=== PATIENT | female | born 1960 | race Caucasian/White ===

== ENCOUNTER 2020-06-16 07:41 | Outpatient (CLI) | payer BC, SELFPAY ==
[2020-06-16 07:59] LABS: Hemoglobin 13.6 g/dL (12.0-15.0); Mean Corpuscular HGB Conc 32.4 g/dl (32-36); Mean Corpuscular Hemoglobin 27.4 pg (26-34); Mean Corpuscular Volume 84.5 fl (80-100); Mean Platelet Volume 12.5 fl (7.4-10.4); Platelet Count Result 168 k/mm3 (150-375); Red Blood Count 4.97 M/mm3 (4.2-5.4); Red Cell Distribution Width 13.8 % (11.5-14.5); White Blood Count 6.2 K/mm3 (4.5-10.0)
[2020-06-16 08:13] LABS: Hemoglobin A1C 6.4 % (<5.7)
[2020-06-16 08:14] LABS: Alanine Aminotransferase 23 U/L (4-35); Albumin Level 4.2 g/dL (3.5-5.1); Alkaline Phosphatase 76 U/L (38-126); Anion Gap 11.8 mmol/L (7-16); Aspartate Amino Transferase 24 U/L (14-36); Bilirubin,Total 0.5 mg/dL (0.2-1.3); Blood Urea Nitrogen 14 mg/dL (7-17); Calcium 9.6 mg/dL (8.4-10.2); Carbon Dioxide 25 mmol/L (22-30); Chloride 104 mmol/L (98-107); Cholesterol 147 mg/dL (0-200); Estimated Glomerular Filt Rate > 60; Glucose 150 mg/dL (65-105); HDL Direct 54 mg/dL; Potassium 3.8 mmol/L (3.4-5.0); Sodium 137 mmol/L (137-145); Triglycerides 78 mg/dL (<150)
[2020-06-16 08:25] LABS: LDL Cholesterol Direct 72 mg/dL
== END 2020-06-16 07:42 | disposition home or self-care (01) ==
PROVIDERS: PCP Internal Medicine; Visit Provider Physician Assistant
DX: R76.8 Other specified abnormal immunological findings in serum (principal); I10 Essential (primary) hypertension; R73.9 Hyperglycemia, unspecified; R53.83 Other fatigue
CPT/HCPCS: 36415; 80053; 80061; 82607; 82746; 83036; 84443; 85027; 86038

== ENCOUNTER → 2021-07-12 13:42 | Outpatient (CLI) | payer BC, SELFPAY ==
--- NOTE | ~2021-07-12 | US_ITS ---
EXAMINATION: US thyroid DATE: 07/12/2021 13:58 INDICATION: Hyperparathyroidism, unspecified. TECHNIQUE: Multiple ultrasound images of the thyroid were obtained. COMPARISON: None. FINDINGS: The right thyroid lobe measures 5.8 x 2.3 x 2.2 cm. The left thyroid lobe measures 5.5 x 2.4 x 2.9 c m. In the left thyroid lobe, there is a 2.1 cm mixed cystic and solid, hypoechoic, dgwmj-xczk-mqea n odule with ill-defined margin without echogenic foci (TI-RADS TR3). In the left thyroid lobe, there i s a 2.4 cm predominantly solid, hypoechoic, vsujf-tgqd-pvlg nodule with ill-defined margin without ec hogenic foci (TR4). In the right thyroid lobe, there is a 1.6 cm solid, isoechoic, sxnmx-srcc-hets no dule with ill-defined margin without echogenic foci (TR3). IMPRESSION: 1. Multinodular goiter. Ultrasound-guided fine-needle aspiration of the 2.4 cm left thyroid nodule is recommended. Reviewed, dictated and finalized at location B.
== END ==
PROVIDERS: PCP Physician Assistant; Visit Provider Physician Assistant
DX: E21.3 Hyperparathyroidism, unspecified (principal); E04.2 Nontoxic multinodular goiter
CPT/HCPCS: 76536

== ENCOUNTER → 2021-07-16 02:54 | Outpatient (CLI) | payer BC, SELFPAY ==
[2021-07-16 19:41] LABS: SARS-CoV-2 RNA PCR Negative
== END ==
PROVIDERS: PCP Physician Assistant; Visit Provider Internal Medicine Gastroenterology
DX: Z01.812 Encounter for preprocedural laboratory examination (principal); Z20.822 Contact with and (suspected) exposure to COVID-19
CPT/HCPCS: C9803; U0003; U0005

== ENCOUNTER 2021-07-19 01:04 | Day surgery (SDC) | payer BC, SELFPAY ==
[2021-07-10 12:07] VITALS: BMI 64.0
[2021-07-19 07:58] VITALS: BP 144/95; PULSE 59; RESP 18; TEMP 36; O2SAT 96; BMI 64.3
[2021-07-19 08:15] LABS: Glucose Point of Care 156 mg/dl (65-105)
[2021-07-19] MEDS: LACTATED RINGERS 1,000 ML 150 ML IV CONT (08:23)
--- NOTE | 2021-07-19 08:30 | WPDANESEPPF ---
Anes - Initial Pre Proc Eval Procedure: Operation Date: 07/19/21 09:00 Proposed Procedures p Screening Colonoscopy - Matty Colin MD Date/Time: 07/19/21 08:30 Surgeon: Matty Colin MD Pre Op Diagnosis: family hx of colon ca Patient Data Age: 61 Gender: F Height: 1.73 m Weight: 192.1 kg Last Vital Signs Temp 96.8 F L 07/19/21 07:58 Pulse 59 L 07/19/21 07:58 Resp 18 07/19/21 07:58 BP 144/95 H 07/19/21 07:58 Pulse Ox 96 07/19/21 07:58 Allergies Allergy/AdvReac Type Severity Reaction Status Date / Time latex Allergy Unknown Unknown Verified 07/19/21 08:07 Home Medications Medication Instructions Recorded Confirmed Type rivaroxaban 20 mg tablet See Rx Instructions .ROUTE 02/21/21 07/19/21 Rx .COMPLEX #30 tablet metoprolol succinate 50 mg See Rx Instructions .ROUTE 04/22/21 07/19/21 Rx tablet,extended release 24 hr .COMPLEX #30 tablet triamterene 37.5 1 cap PO DAILY #90 cap 06/14/21 07/19/21 Rx mg-hydrochlorothiazide 25 mg capsule metformin 500 mg tablet 500 mg PO DAILY #90 tablet 06/21/21 07/19/21 Rx diltiazem HCl [Cardizem] See Rx Instructions .ROUTE .COMPLEX 07/10/21 07/19/21 History Laboratory Tests 07/19/21 08:13 POC Capillary Glucose 156 mg/dl H mg/dl (65-105) Patient hx anesthesia problems: none Family hx anesthesia problems: none [facility] Past Medical History Medical History (Updated 07/05/21 @ 13:46 by Scotty Rose PA-C) Atrial fibrillation with controlled ventricular rate Chronic atrial fibrillation SPRAGUE (dyspnea on exertion) Essential hypertension with goal blood pressure less than 140/90 Hypersomnia Irregular heartbeat Obstructive sleep apnea Palpitations with regular cardiac rhythm Surgical History Surgical History H/O: hysterectomy Hx of cholecystectomy Family History Family History Father Diabetes mellitus Carcinoma of colon Patient's father is Mother Hypertension Patient's mother is in good health Sibling Cerebrovascular accident Family history of malignant neoplasm of thyroid Social History Social History Smoking status: Never smoker Second hand tobacco smoke exposure: No Alcohol intake: former Substance use: never Substance use type: does not use Living arrangements: with family Gender identity (if verbalized by the patient): Female Anes - Eval Final PreProcedure Day of Procedure 07/19/21 08:30 Patient weight: super morbidly obese (super super) Heart: irregular rhythm Lungs: clear to auscultation Airway: Mallampati scale class III Neurological: alert and oriented Last oral intake: >/= 8 hours ASA classification: IV Emergent: no Anesthetic plan: proceed Anesthesia type and monitoring: general GIVS and standard monitoring Informed Consent: The patient's anesthetic plan and its attendant risks and benefits were discussed with the patient/family/POA. Questions were solicited and answers provided to the satisfaction of the patient/family/POA.
--- NOTE | 2021-07-19 08:34 | WPDGICN ---
Assessment and Plan Assessment and plan (1) Family history of colon cancer in father: Code(s): Z80.0 - Family history of malignant neoplasm of digestive organs Status: Acute Assessment and Plan: Patient's father had colon cancer. For this reason would advise screening colonoscopy at 5 year intervals. This report follows later today. Further recommendations may be given after endoscopy. (2) GERD (gastroesophageal reflux disease): Code(s): K21.9 - Gastro-esophageal reflux disease without esophagitis Status: Acute Assessment and Plan: Patient complains of chronic heartburn. She states she takes PPI therapy on a regular basis. This appears to control symptoms because of her the chronic GE reflux she has never had an endoscopy plan is for EGD to assess her upper GI tract today. (3) Morbid obesity with BMI of 60.0-69.9, adult: Code(s): E66.01 - Morbid (severe) obesity due to excess calories; Z68.44 - Body mass index [BMI] 60.0-69.9, adult Status: Acute Assessment and Plan: Patient is obese. Weight loss is strongly encouraged. (4) Atrial fibrillation with controlled ventricular rate: Code(s): I48.91 - Unspecified atrial fibrillation Status: Acute Assessment and Plan: Patient with atrial fibrillation for which she is on anticoagulation. Plan to hold anticoagulants briefly for endoscopy. GI Consult Note Consult date/time: 07/19/21 08:34 HPI: Allyn Ramirez is a 61 year old female Presents for GI endoscopy. Patient has family history of colon cancer in her father. Most recent colonoscopy in [address] douglas. Patient denies any bleeding. Her bowel habits have been normal. She denies any weight loss. Patient does have a history of heartburn for many years. She currently takes omeprazole for control of symptoms. She denies any dysphagia weight loss. Because of chronic heartburn she desires investigation. Review of Systems Review of Systems: All systems reviewed & are unremarkable except as noted in HPI and below [facility] Past Medical History Medical History (Updated 07/19/21 @ 08:36 by Matty Colin MD) Atrial fibrillation with controlled ventricular rate Chronic atrial fibrillation SPRAGUE (dyspnea on exertion) Essential hypertension with goal blood pressure less than 140/90 Hypersomnia Irregular heartbeat Obstructive sleep apnea Palpitations with regular cardiac rhythm Surgical History Surgical History H/O: hysterectomy Hx of cholecystectomy Family History Family History Father Diabetes mellitus Carcinoma of colon Patient's father is Mother Hypertension Patient's mother is in good health Sibling Cerebrovascular accident Family history of malignant neoplasm of thyroid Social History Social History Smoking status: Never smoker Second hand tobacco smoke exposure: No Alcohol intake: former Substance use: never Substance use type: does not use Living arrangements: with family Gender identity (if verbalized by the patient): Female Meds Home Medications and Allergies Home Medications Medication Instructions Recorded Confirmed Type rivaroxaban 20 mg tablet See Rx Instructions .ROUTE 02/21/21 07/19/21 Rx .COMPLEX #30 tablet metoprolol succinate 50 mg See Rx Instructions .ROUTE 04/22/21 07/19/21 Rx tablet,extended release 24 hr .COMPLEX #30 tablet triamterene 37.5 1 cap PO DAILY #90 cap 06/14/21 07/19/21 Rx mg-hydrochlorothiazide 25 mg capsule metformin 500 mg tablet 500 mg PO DAILY #90 tablet 06/21/21 07/19/21 Rx diltiazem HCl [Cardizem] See Rx Instructions .ROUTE .COMPLEX 07/10/21 07/19/21 History Allergies Allergy/AdvReac Type Severity Reaction Status Date / Time latex Allergy Unknown U
--- NOTE | 2021-07-19 09:15 | SUR.OPER ---
EGD START 850, END 852 COLONOSCOPY START 905, END 914
[2021-07-19 09:17] VITALS: BP 144/95; PULSE 145; RESP 24; O2SAT 96
[2021-07-19 09:27] VITALS: BP 107/62; PULSE 120; RESP 24; O2SAT 96
[2021-07-19 09:37] VITALS: BP 126/72; PULSE 97; RESP 19; O2SAT 100
[2021-07-19 09:47] VITALS: BP 136/90; PULSE 95; RESP 17; O2SAT 100
== END 2021-07-19 09:51 | disposition home or self-care (01) ==
PROVIDERS: PCP Physician Assistant; Visit Provider Internal Medicine Gastroenterology
PROC: 0DJD8ZZ Inspection of Lower Intestinal Tract, Via Natural or Artificial Opening Endoscopic (ICD-10-PCS; CPT 45378; principal; 2021-07-19 09:00)
DX: Z12.11 Encounter for screening for malignant neoplasm of colon (principal); Z80.0 Family history of malignant neoplasm of digestive organs; K21.9 Gastro-esophageal reflux disease without esophagitis; K57.30 Diverticulosis of large intestine without perforation or abscess without bleeding; K64.8 Other hemorrhoids; I48.20 Chronic atrial fibrillation, unspecified; I10 Essential (primary) hypertension; E66.01 Morbid (severe) obesity due to excess calories; G47.33 Obstructive sleep apnea (adult) (pediatric); G47.10 Hypersomnia, unspecified; Z79.01 Long term (current) use of anticoagulants; Z90.710 Acquired absence of both cervix and uterus; Z90.49 Acquired absence of other specified parts of digestive tract; Z79.899 Other long term (current) drug therapy
CPT/HCPCS: 45378; 43235; 82948; J2704; J7120

== ENCOUNTER → 2021-09-03 02:22 | Outpatient (CLI) | payer BC, SELFPAY ==
[2021-09-03 16:22] LABS: SARS-CoV-2 RNA PCR Negative
== END ==
PROVIDERS: PCP Physician Assistant; Visit Provider Otolaryngology
DX: Z01.812 Encounter for preprocedural laboratory examination (principal); Z20.822 Contact with and (suspected) exposure to COVID-19
CPT/HCPCS: C9803; U0003; U0005

== ENCOUNTER 2021-09-03 08:48 | Outpatient (CLI) | payer BC, SELFPAY ==
--- NOTE | 2021-09-03 09:30 | ECG_ITS ---
Measurements Intervals [place] Rate: 102 P: NH: 0 QRS: 3 QRSD: 101 T: 12 QT: 352 QTc: 460 Interpretive Statements ATRIAL FIBRILLATION WITH RAPID VENTRICULAR RESPONSE LOW QRS VOLTAGE IN PRECORDIAL LEADS BORDERLINE T WAVE ABNORMALITY- INFERIOR LEADS BASELINE WANDER- I, II, AVR ABNORMAL ECG Electronically Signed On 09-03-2021 9:51:19 CDT by Serge Ho D.O.
[2021-09-03 10:43] LABS: Anion Gap 8 mmol/L (8-16); Blood Urea Nitrogen 11 mg/dL (7-17); Calcium 11.1 mg/dL (8.4-10.2); Carbon Dioxide 30 mmol/L (22-30); Chloride 101 mmol/L (98-107); Estimated Glomerular Filt Rate > 60; Glucose 157 mg/dL (65-110); Sodium 139 mmol/L (137-145)
== END 2021-09-03 08:49 | disposition home or self-care (01) ==
LOC: ANHSURGERY 08:52
PROVIDERS: Anesthesiology; PCP Physician Assistant; Visit Provider Otolaryngology
DX: Z01.818 Encounter for other preprocedural examination (principal); I10 Essential (primary) hypertension; E11.9 Type 2 diabetes mellitus without complications; I48.91 Unspecified atrial fibrillation
CPT/HCPCS: 36415; 80048; 93005

== ENCOUNTER 2021-09-06 00:17 | Day surgery (SDC) | payer BC, SELFPAY ==
[2021-08-28 14:58] VITALS: BMI 63.6
--- NOTE | 2021-09-05 08:04 | PM.IMHP ---
H&P: HPI History of Present Illness Date/Time: 09/05/21 08:04 Chief Complaint: thyroid goiter, left thyroid nodules, choking, coughing, dysphagia Narrative: patient presents for planned surgical procedures. No change in symptoms no change in Medical history. Review of Systems Constitutional: Constitutional: Denies fatigue, Denies fever(s) and Denies lethargy Eyes: Eyes: Denies blurry vision and Denies change in vision ENT: Reports as per HPI Cardiovascular: Cardiovascular: Denies chest pain Respiratory: Respiratory: Denies cough Endocrine: Endocrine: Denies fatigue Hematologic/Lymphatic: Hematologic/Lymphatic: Denies easy bleeding, Denies easy bruising and Denies lymphadenopathy Allergic/Immunologic: Allergic/Immunologic: Denies seasonal rhinorrhea [facility] Past Medical History Medical History (Updated 07/24/21 @ 09:59 by Tejas Brown MD) Atrial fibrillation with controlled ventricular rate Chronic atrial fibrillation SPRAGUE (dyspnea on exertion) Essential hypertension with goal blood pressure less than 140/90 Hypersomnia Irregular heartbeat Obstructive sleep apnea Palpitations with regular cardiac rhythm Surgical History Surgical History H/O: hysterectomy Hx of cholecystectomy Family History Family History Father Diabetes mellitus Carcinoma of colon Patient's father is Mother Hypertension Patient's mother is in good health Sibling Cerebrovascular accident Family history of malignant neoplasm of thyroid Social History Social History Smoking status: Never smoker Second hand tobacco smoke exposure: No Alcohol intake: former Substance use: never Substance use type: does not use Gender identity (if verbalized by the patient): Female Meds Home Medications and Allergies Home Medications Medication Instructions Recorded Confirmed Type triamterene 37.5 1 cap PO DAILY #90 cap 06/14/21 08/28/21 Rx mg-hydrochlorothiazide 25 mg capsule metformin 500 mg tablet 500 mg PO DAILY #90 tablet 06/21/21 08/28/21 Rx diltiazem HCl [Cardizem] 30 mg PO BID 07/10/21 08/28/21 History metoprolol succinate 50 mg PO DAILY 08/28/21 08/28/21 History rivaroxaban [Xarelto] 20 mg PO DAILY 08/28/21 08/28/21 History Allergies Allergy/AdvReac Type Severity Reaction Status Date / Time latex Allergy Unknown BLISTERS, Verified 08/28/21 14:50 ITCHING Exam Const: General: cooperative, healthy appearing, comfortable, well developed and alert HENMT: Head: normal to inspection, normocephalic and atraumatic Ears: hearing grossly normal bilaterally, external ears normal, TM's normal bilaterally and EAC's normal General nose exam: Normal external nose present, Normal nares present, No nasal polyps present, Normal nasal mucous membranes and turbinates present and Normal septum present Face and sinus: normal facial exam Mouth: Yes Normal oral and palatal mucosa present, Yes lip normal, Yes tongue normal, Yes oropharynx normal and Yes moist mucous membranes Teeth and gingiva: dentition normal and gingiva normal Throat: posterior oropharynx normal, tonsils normal and uvula midline Eyes: General: appearance normal, both eyes and all related structures Periorbital: periorbital findings normal Eyelids: eyelids normal Conjunctivae: conjunctivae normal Sclera: sclerae normal Neck: Neck: normal visual inspection, full ROM and no lymphadenopathy Thyroid: asymmetrical and other ( bilateral nodules left greater than right) Lymphatic: no lymphadenopathy noted Resp: Effort & Inspection: normal respiratory effort and able to speak in complete sentences Cardio: Jugular venous distension: no JVD Neuro: Cranial nerves: Yes CN's II-XII intact bilaterally Assessment and Plan Assessment and plan (1) Goiter: Co
[2021-09-06] VITALS (7 sets, daily range): BP systolic 116–157; BP diastolic 61–102; PULSE 78–124; RESP 16–24; TEMP 36.6–36.8; O2SAT 92–97; BMI 64.3
--- NOTE | 2021-09-06 07:10 | WPDHPUPDATE1 ---
History and Physical Update Update Date/Time: 09/06/21 07:10 History and Physical has been reviewed, including an updated exam of the patient. There are NO changes in the patient's condition. Risks, benefits, and alternatives have been discussed and questions answered. Patient agrees to proceed with procedure.
[2021-09-06 10:24] LABS: Glucose Point of Care 139 mg/dl (65-105)
[2021-09-06] MEDS: ACETAMINOPHEN 500 MG TABLET 1000 MG PO (10:39)
[2021-09-06] MEDS: LACTATED RINGERS 1,000 ML 30 ML IV CONT ×2 (10:39→15:46)
--- NOTE | 2021-09-06 10:58 | WPDANESEPPF ---
Anes - Initial Pre Proc Eval Procedure: Operation Date: 09/06/21 11:15 Proposed Procedures p Left Thyroidectomy with Laryngeal Nerve Monitoring - Tejas Brown MD Date/Time: 09/06/21 10:58 Surgeon: Tejas Brown MD Pre Op Diagnosis: left thyroid nodule Patient Data Age: 61 Gender: F Height: 1.73 m Weight: 192.1 kg Last Vital Signs Temp 36.8 C 09/06/21 10:34 Pulse 78 09/06/21 10:34 Resp 16 09/06/21 10:34 BP 157/86 H 09/06/21 10:34 Pulse Ox 96 09/06/21 10:34 Allergies Allergy/AdvReac Type Severity Reaction Status Date / Time latex Allergy Unknown BLISTERS, Verified 08/28/21 14:50 ITCHING Home Medications Medication Instructions Recorded Confirmed Type triamterene 37.5 1 cap PO DAILY #90 cap 06/14/21 08/28/21 Rx mg-hydrochlorothiazide 25 mg capsule metformin 500 mg tablet 500 mg PO DAILY #90 tablet 06/21/21 08/28/21 Rx diltiazem HCl [Cardizem] 30 mg PO BID 07/10/21 08/28/21 History metoprolol succinate 50 mg PO DAILY 08/28/21 08/28/21 History rivaroxaban [Xarelto] 20 mg PO DAILY 08/28/21 08/28/21 History Laboratory Tests 09/06/21 10:21 POC Capillary Glucose 139 mg/dl H mg/dl (65-105) Patient hx anesthesia problems: none Family hx anesthesia problems: none Results Review: All pre-operative results and documents have been reviewed as part of the pre-operative evaluation. [facility] Past Medical History Medical History Atrial fibrillation with controlled ventricular rate Chronic atrial fibrillation SPRAGUE (dyspnea on exertion) Essential hypertension with goal blood pressure less than 140/90 Hypersomnia Irregular heartbeat Obstructive sleep apnea Palpitations with regular cardiac rhythm Surgical History Surgical History H/O: hysterectomy Hx of cholecystectomy Family History Family History Father Diabetes mellitus Carcinoma of colon Patient's father is Mother Hypertension Patient's mother is in good health Sibling Cerebrovascular accident Family history of malignant neoplasm of thyroid Social History Social History Smoking status: Never smoker Second hand tobacco smoke exposure: No Alcohol intake: former Substance use: never Substance use type: does not use Living arrangements: with family Gender identity (if verbalized by the patient): Female Anes - Eval Final PreProcedure Day of Procedure 09/06/21 10:58 Patient weight: super morbidly obese Heart: irregular rhythm Lungs: clear to auscultation Airway: Mallampati scale class III Neurological: alert and oriented Last oral intake: >/= 8 hours ASA classification: III Emergent: no Anesthetic plan: proceed Anesthesia type and monitoring: general ETT and standard monitoring Results Review: All pre-operative results and documents have been reviewed as part of the pre-operative evaluation. Informed Consent: The patient's anesthetic plan and its attendant risks and benefits were discussed with the patient/family/POA. Questions were solicited and answers provided to the satisfaction of the patient/family/POA.
[2021-09-06] MEDS: ceFAZolin 3 GM/D5W 100 ML 100 ML IVPB (11:29)
[2021-09-06] MEDS: LIDO 1%/EPINEPHRINE 1:100,000 50 ML VIAL 10 ML INFILTRATE (12:26)
--- NOTE | 2021-09-06 12:40 | SUR.PREOP ---
DR CHRISTOPHER AWARE PT HAS STOPPED XARENTO FOR 5 DAYS. STOPPED TAKING ON XARELTO ON VVBOIH51/10/21.
[2021-09-06] MEDS: ceFAZolin SODIUM 1 GM VIAL 2 GM IV PUSH (15:27)
[2021-09-06 15:54] LABS: Glucose Point of Care 171 mg/dl (65-105)
--- NOTE | 2021-09-06 16:18 | P.OP_ITS ---
Procedure Note - Detailed Date of Procedure 09/06/21 Pre-op Diagnosis left thyroid nodule, thyroid goiter, substernal thyroid, dysphagia, choking, compressive symptoms Post-op Diagnosis same Procedure Performed 1. Left thyroid lobectomy, substernal, with recurrent laryngeal nerve monitoring 2. Reimplantation of left parathyroid superior in the left sternocleidomastoid. Surgeon Tejas Brown MD Furnace Installer Helper Multiple Anesthesia general Indications See above Findings Large left thyroid lobe with substernal the patient had nerve which was split by calcified tubercle of Zuckerkandl and Luis's ligament, ran through Luis's ligament extensive dissection required complex compared to a standard thyroid lobectomy Description of Procedure The patient was correctly identified and consent was verified in the preoperative holding area. The patient was then brought to the operating room and a time-out performed. Anesthesia was induced and endotracheal tube was secured the patient's airway, nerve monitoring. Patient was prepped and draped for the aforementioned procedure a shoulder roll nerve monitoring was set up and confirmed. Surgical site marked injected with 2 cc of 1% lidocaine with 1 100,000 parts epinephrine approximately 2 cm above the sternal notch in a relaxed skin tension line.. Dissection occurred down to the platysma with 15 blade and Bovie electrocautery. Platysma was incised. The superior and inferior subplatysmal flaps were elevated. Midline raphe was identified and dissected down using blunt dissection as well as Bovie electrocautery the thyroid isthmus was identified. Dura hooks were placed. Dissection lateral to the thyroid inferior and superior occurred with ligature tenotomy scissors and blunt dissection as well as peanuts. The superior vessels were all ligated using ligature. Superior parathyroid was inadvertently removed chopped into small pieces and placed in the left sternocleidomastoid. Dissection was fairly straight forward until the left lateral aspect was noted to have a calcified nodule. This nodule occurred to happen be wrapped around the nerve. Dissection of the nerve was complex in nature taking approximately 1-2 hours. The nerve was split by the ligament of Cruz and nodule. With thorough careful dissection the nerve was dissected free from the lateral aspect lateral posterior aspect of the thyroid. The nerve stimulated at the end of the procedure all the way down 2.5. Given the large size thyroid was split in 2 and sent in a superior and inferior pathologic specimen. Ligature was then utilized to remove the thyroid. Hemostasis was adequate and Anesthesia Valsalva. The wound was copiously irrigated. Of note the inferior thyroid the inferior parathyroid on the left was also identified and appeared vascularized this was left in the operative bed. Given the large size of the defect in the inferior portion of the thyroid also extended substernally and had to be scooped out a drain was placed and sutured to the skin using 3-0 nylon suture. The deep layers were closed in the superior portion using 3-0 interrupted Vicryl sutures. The platysma was closed using 3-0 interrupted Vicryl sutures. The deep dermal layer was closed using 3- 0 interrupted Vicryl sutures. The skin approximated perfectly. This was glued closed. The drain held suction. Patient was cleaned. Care the patient was turned over to Anesthesiology. Total blood loss 25 cc. I performed all dictated portions of the procedure. There were no immediate complications. Estimated Blood Loss 25 Drains Yes Packing No Pathology yes Complications No immediate complications Condition stable Disposition PAC
== END 2021-09-06 17:55 | disposition home or self-care (01) ==
PROVIDERS: PCP Physician Assistant; Visit Provider Otolaryngology
PROC: (CPT 60271; principal; 2021-09-06 11:15)
DX: C73 Malignant neoplasm of thyroid gland (principal); E04.2 Nontoxic multinodular goiter; R13.10 Dysphagia, unspecified; R09.89 Other specified symptoms and signs involving the circulatory and respiratory systems; Z79.84 Long term (current) use of oral hypoglycemic drugs; T17.308A Unspecified foreign body in larynx causing other injury, initial encounter; I48.91 Unspecified atrial fibrillation; I48.20 Chronic atrial fibrillation, unspecified; R06.09 Other forms of dyspnea; I10 Essential (primary) hypertension; G47.10 Hypersomnia, unspecified; R00.9 Unspecified abnormalities of heart beat; G47.33 Obstructive sleep apnea (adult) (pediatric); Z90.49 Acquired absence of other specified parts of digestive tract; E66.01 Morbid (severe) obesity due to excess calories; Z68.44 Body mass index [BMI] 60.0-69.9, adult
CPT/HCPCS: 60271; 60512; 36415; 80048; 82948; 88307; 93005; A9270; C9803; J0330; J0690; J1100; J2250; J2405; J2704; J3010; J7120; U0003; U0005

== ENCOUNTER → 2021-10-29 03:14 | Outpatient (CLI) | payer BC, SELFPAY ==
[2021-10-29 20:28] LABS: SARS-CoV-2 RNA PCR Negative
== END ==
PROVIDERS: PCP Physician Assistant; Visit Provider Otolaryngology
DX: Z01.812 Encounter for preprocedural laboratory examination (principal); Z20.822 Contact with and (suspected) exposure to COVID-19
CPT/HCPCS: C9803; U0003; U0005

== ENCOUNTER 2021-11-01 00:32 | Day surgery (SDC) | payer BC, SELFPAY ==
[2021-10-24 09:56] VITALS: BMI 61.0
--- NOTE | 2021-10-24 10:06 | PC.NURSE ---
Report to the Outpatient Waiting Room, entrance under the green pavilion located off [facility], at time 0700 on date 11/01/21. OR Time: 0900. - You and your visitor will be asked a series of questions to screen for COVID 19 for your protection. - A mask is required within the hospital. - Only one visitor is allowed at this time. Patient visitors will be guided where to wait when not with patient. Preoperative COVID Testing Requirements: No COVID Test needed if: (proof is required; if not received patient will have Rapid Test prior to entry) - Patient has received COVID Vaccine at least 14 days prior to procedure date or - Patient has positive COVID test result within last 90 days of surgery date. COVID Test needed if above criteria is not met If not COVID vaccinated a COVID test must be conducted within 72 hours of surgery and patient is asked to isolate self from time of testing until procedure. You will go to the [facility] for your COVID testing. The [facility] is located at the corner of [address] [facility]. COVID TEST 10/29 AT 0835 You will only be called if COVID results are positive and your surgeon may reschedule your elective surgery date. Patients may have clear liquids (water, carbonated beverages, clear teas, apple juice) until 3 hours prior to surgery with a maximum of 20 ounces. - No food from midnight until time of surgery - Infants may have breast milk until 4 hours before surgery, formula 6 hours prior to surgery. - Children will be allowed to drink immediately following surgery. If applicable, please bring a bottle or sippy cup to assist with drinking. Juice, water, soda, and popsicles are readily available. For infants on formula, please bring formula the day of surgery. Pacifiers are allowed. Take the following medications with a SIP of water the morning of surgery: DILTIAZEM, LEVOTHYROXINE, METOPROLOL Medications to discontinue per physician: VITAMINS/SUPPLEMENTS Date to take last dose: 10/28/[address] CHRISTOPHER Please no make-up, nail cypriot, hairspray, perfume, deodorant, or body powder the day of surgery. No jewelry (including any body piercings) or valuables the day of surgery, leave them at home. Please take a shower or bath the night before, or the morning of, surgery with an antibacterial soap. Wear comfortable, loose fitting clothing. Children are encouraged to wear pajamas. - Jewelry must be removed prior to entering the operating room. Rings and piercings that are not removed may be cut off. - The hospital will not accept responsibility for valuables. - Please leave all valuables, including medications, at home the day of surgery. If you are going home after surgery, a licensed tractor driver teamster must drive you home. - NO public transportation without another adult. - We recommend that an adult stay with you for 24 hours following discharge. - We also recommend that you do not drive, make important decision, drink alcoholic beverages, or take any drugs that were not prescribed by your health care provider for at least 24 hours after your discharge time. For Pediatric surgeries, we recommend two adults accompany the child home (only one inside the building at this time). Follow any additional instructions given to you from your surgeon. Telephone instructions given to HARSHAL ARMENTA and asked if any additional questions and then verbalized understanding. Patient advised to call surgeon office or pre surgery nurse liaison [phone] if any additional questions.
--- NOTE | 2021-10-31 07:49 | PM.IMHP ---
H&P: HPI History of Present Illness Date/Time: 10/31/21 07:49 Chief Complaint: Thyroid cancer, thyroid goiter, thyroid nodule Narrative: patient presents for planned surgical procedure. No change in symptoms no change in history. 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 Review of Systems Constitutional: Constitutional: Denies fatigue, Denies fever(s) and Denies lethargy Eyes: Eyes: Denies blurry vision and Denies change in vision ENT: Reports as per HPI Cardiovascular: Cardiovascular: Denies chest pain Respiratory: Respiratory: Denies cough Endocrine: Endocrine: Denies fatigue Hematologic/Lymphatic: Hematologic/Lymphatic: Denies easy bleeding, Denies easy bruising and Denies lymphadenopathy Allergic/Immunologic: Allergic/Immunologic: Denies seasonal rhinorrhea [facility] Past Medical History Medical History (Updated 10/31/21 @ 07:50 by Tejas Brown MD) Atrial fibrillation with controlled ventricular rate Chronic atrial fibrillation SPRAGUE (dyspnea on exertion) Essential hypertension with goal blood pressure less than 140/90 Hypersomnia Irregular heartbeat Obstructive sleep apnea Palpitations with regular cardiac rhythm Surgical History Surgical History H/O: hysterectomy Hx of cholecystectomy Family History Family History Father Diabetes mellitus Carcinoma of colon Patient's father is Mother Hypertension Patient's mother is in good health Sibling Cerebrovascular accident Family history of malignant neoplasm of thyroid Social History Social History Smoking status: Never smoker Second hand tobacco smoke exposure: No Alcohol intake: never Substance use: never Substance use type: does not use Gender identity (if verbalized by the patient): Female Sexual Orientation (if Verbalized by the Patient): Straight or Heterosexual Spiritual care concerns: No Meds Home Medications and Allergies Home Medications Medication Instructions Recorded Confirmed Type triamterene 37.5 1 cap PO DAILY #90 cap 06/14/21 10/24/21 Rx mg-hydrochlorothiazide 25 mg capsule Xarelto 20 mg PO DAILY 08/28/21 10/24/21 History diltiazem HCl 60 mg tablet 60 mg PO BID #60 tablet 09/13/21 10/24/21 Rx metoprolol succinate 50 mg See Rx Instructions .ROUTE 09/18/21 10/24/21 Rx tablet,extended release 24 hr .COMPLEX #30 tablet levothyroxine 25 mcg tablet 25 mcg PO DAILY #30 tablet 10/08/21 10/24/21 Rx metformin 500 mg tablet 500 mg PO DAILY #90 tablet 10/08/21 10/24/21 Rx zinc sulfate-vitamin C [Vitamin C 1 tablet PO DAILY 10/24/21 10/24/21 History with Zinc] Allergies Allergy/AdvReac Type Severity Reaction Status Date / Time latex Allergy Unknown BLISTERS, Verified 10/24/21 09:54 ITCHING Exam Const: General: cooperative, healthy appearing, comfortable, well developed and alert HENMT: Head: normal to inspection, normocephalic and atraumatic Ears: hearing grossly normal bilaterally, external ears normal, TM's normal bilaterally and EAC's normal General nose exam: Normal external nose present, Normal nares present, No nasal polyps present, Normal nasal mucous membranes and turbinates present and Normal septum present Face and sinus: normal facial exam Mouth: Yes Normal oral and palatal mucosa present, Yes lip normal, Yes tongue normal, Yes oropharynx normal and Yes moist mucous membranes Teeth and gingiva: dentition normal and gingiva normal Throat: posterior oropharynx normal, tonsils normal and uvula midline Eyes: General: appearance normal, both eyes and all related structures Periorbital: periorbital findings normal Eyelids: eyelids normal Conjunctivae: conjunctivae normal Sclera: sclerae normal Neck: Neck: n
[2021-11-01] VITALS (13 sets, daily range): BP systolic 121–167; BP diastolic 57–95; PULSE 69–99; RESP 14–25; TEMP 36.9; O2SAT 93–100
--- NOTE | 2021-11-01 07:04 | WPDHPUPDATE1 ---
History and Physical Update Update Date/Time: 11/01/21 07:04 History and Physical has been reviewed, including an updated exam of the patient. There are NO changes in the patient's condition. Risks, benefits, and alternatives have been discussed and questions answered. Patient agrees to proceed with procedure.
--- NOTE | 2021-11-01 07:52 | WPDANESEPPF ---
Anes - Initial Pre Proc Eval Procedure: Operation Date: 11/01/21 09:00 Proposed Procedures p Completion Thyroidectomy - Tejas Brown MD Date/Time: 11/01/21 07:52 Surgeon: Tejas Brown MD Pre Op Diagnosis: thyroid cancer Patient Data Age: 61 Gender: F Height: 1.73 m Weight: 182 kg Allergies Allergy/AdvReac Type Severity Reaction Status Date / Time latex Allergy Unknown BLISTERS, Verified 10/24/21 09:54 ITCHING Home Medications Medication Instructions Recorded Confirmed Type triamterene 37.5 1 cap PO DAILY #90 cap 06/14/21 10/24/21 Rx mg-hydrochlorothiazide 25 mg capsule Xarelto 20 mg PO DAILY 08/28/21 10/24/21 History diltiazem HCl 60 mg tablet 60 mg PO BID #60 tablet 09/13/21 10/24/21 Rx metoprolol succinate 50 mg See Rx Instructions .ROUTE 09/18/21 10/24/21 Rx tablet,extended release 24 hr .COMPLEX #30 tablet levothyroxine 25 mcg tablet 25 mcg PO DAILY #30 tablet 10/08/21 10/24/21 Rx metformin 500 mg tablet 500 mg PO DAILY #90 tablet 10/08/21 10/24/21 Rx zinc sulfate-vitamin C [Vitamin C 1 tablet PO DAILY 10/24/21 10/24/21 History with Zinc] Patient hx anesthesia problems: none Family hx anesthesia problems: none Results Review: All pre-operative results and documents have been reviewed as part of the pre-operative evaluation. [facility] Past Medical History Medical History (Updated 11/01/21 @ 07:59 by Den Segura MD) Atrial fibrillation with controlled ventricular rate Chronic atrial fibrillation SPRAGUE (dyspnea on exertion) Essential hypertension with goal blood pressure less than 140/90 GERD (gastroesophageal reflux disease) Hyperglycemia Hypersomnia Hypertension Irregular heartbeat Morbid obesity with BMI of 60.0-69.9, adult Obstructive sleep apnea [place] on CPAP Palpitations with regular cardiac rhythm Papillary thyroid carcinoma Pulmonary HTN Surgical History Surgical History H/O: hysterectomy Hx of cholecystectomy Family History Family History Father Diabetes mellitus Carcinoma of colon Patient's father is Mother Hypertension Patient's mother is in good health Sibling Cerebrovascular accident Family history of malignant neoplasm of thyroid Social History Social History (Reviewed 09/13/21 @ 15:21 by Ana Maria Gutierrez [facility]) Smoking status: Never smoker Second hand tobacco smoke exposure: No Alcohol intake: never Substance use: never Substance use type: does not use Living arrangements: with family Gender identity (if verbalized by the patient): Female Sexual Orientation (if Verbalized by the Patient): Straight or Heterosexual Spiritual care concerns: No Anes - Eval Final PreProcedure Day of Procedure 11/01/21 07:52 Patient weight: super morbidly obese Heart: regular rate and rhythm Lungs: clear to auscultation and normal air movement Airway: Mallampati scale class II Neurological: alert and oriented Last oral intake: >/= 8 hours ASA classification: IV Emergent: no Anesthetic plan: proceed Anesthesia type and monitoring: general ETT Results Review: All pre-operative results and documents have been reviewed as part of the pre-operative evaluation. Informed Consent: The patient's anesthetic plan and its attendant risks and benefits were discussed with the patient/family/POA. Questions were solicited and answers provided to the satisfaction of the patient/family/POA.
[2021-11-01] MEDS: ACETAMINOPHEN 500 MG TABLET 1000 MG PO (08:02)
[2021-11-01] MEDS: LACTATED RINGERS 1,000 ML 30 ML IV CONT ×2 (08:04→13:28)
[2021-11-01 08:31] LABS: Glucose Point of Care 152 mg/dl (65-105)
[2021-11-01] MEDS: ceFAZolin 3 GM/D5W 100 ML 100 ML IVPB (09:43)
[2021-11-01] MEDS: LIDO 1%/EPINEPHRINE 1:100,000 50 ML VIAL INFILTRATE (10:01)
--- NOTE | 2021-11-01 13:27 | ECG_ITS ---
Measurements Intervals Todd Rate: 84 P: MA: 0 QRS: 15 QRSD: 157 T: -19 QT: 415 QTc: 491 Interpretive Statements ATRIAL FIBRILLATION VENTRICULAR PREMATURE COMPLEX LEFT BUNDLE BRANCH BLOCK ABNORMAL ECG Electronically Signed On 11-01-2021 16:34:39 SECURITY PROJECT MANAGER by Serge Ho D.O.
--- NOTE | 2021-11-01 13:52 | P.OP_ITS ---
Procedure Note - Detailed Date of Procedure 11/01/21 Pre-op Diagnosis thyroid cancer, right thyroid nodule Post-op Diagnosis same Procedure Performed Right thyroid lobectomy, completion thyroidectomy, reimplantation of parathyroid Surgeon Tejas Brown MD Anesthesia general Indications See above Findings Right thyroid lobe removed small portion left over recurrent laryngeal nerve superior parathyroid removed reimplanted into SCM Description of Procedure Patient was correctly identified. Consent verified in the preoperative holding area. Patient brought operating room. Time-out performed. General anesthesia induced endotracheal tube nerve monitoring secured nerve monitoring initiated patient prepped and draped for the aforementioned procedure surgical incision drawn prior to prepping. Second time-out performed. 3 cc of 1% lidocaine with 1 100,000 parts epinephrine was injected deep to the pre drawn surgical incision. Fifteen blade utilized to make skin incision Bovie electrocautery dissected used to dissect down to through the platysma. Subplatysmal planes elevated superiorly superiorly to thyroid notch and inferiorly to the sternal notch. Midline identified and dissected down to thyroid thyroid lobe dissected using a combination of blunt dissection bipolar electrocautery. The superior lobe was freed in the avascular place the superior vessels were ligated using the ligature. The lateral aspect was then dissect the middle thyroid veins ligated using ligature. At this point the lobe was rotated the recurrent laryngeal nerve was identified it appeared to be going through Luis's li gament/a small portion of the tubercle which dissected free from the rest other portion of the thyroid. The inferior thyroid artery was then identified and ligated the inferior parathyroid gland appeared to be intact and was left the superior appeared to be devascularized and was removed. The thyroid lobe was then freed from its remaining surrounding tissues and sent for pathologic analysis. The specimen we thought was the parathyroid was sent for confirmation is frozen and confirmed to be parathyroid this was then reimplanted into the right-sided SCM. The wound was then copiously irrigated and Anesthesia Valsalva with no significant bleeding. A 10 Mosotho flat drain was placed and sutured to the skin using 3 0 interrupted nylon suture. The deep layers were closed with 3-0 interrupted Vicryl sutures deep dermal layer was also closed with 3-0 interrupted Vicryl sutures skin closed with skin glue. At this time the patient began having cardiac abnormalities such as runs of AFib/SVT. Fortunately this was at the end of the procedure and the procedure ended. Care the patient was turned over to Anesthesiology. Total blood loss approximately 25 cc. I performed all dictated portions of the procedure. Estimated Blood Loss -25.0 Drains Yes Packing No Pathology yes Complications No immediate complications Condition stable Disposition floor
[2021-11-01 14:37] LABS: Parathyroid Intact 27.7 pg/mL (7.5-53.5)
--- NOTE | 2021-11-01 14:46 | PM.CNCAR ---
Assessment and Plan Additional Plan This is a 61-year-old lady with chronic atrial fibrillation who is in the postanesthesia care unit following completion thyroidectomy which was performed as scheduled today. What we are seeing on telemetry appears to be rate related left bundle branch block. She I do not believe is having any ventricular arrhythmias but she appears to be almost certainly having her chronic atrial fibrillation with rate-related left bundle branch block aberrancy which is what we are seeing on her telemetry. I am going to give her an extra dosage of IV metoprolol intravenously at this time then observe her for a while in the postanesthesia care unit. I do not think there is any new cardiac issue going on that will result in the need to hospitalize this lady overnight. Please call me if you have any further questions about this. Navid Muir MD [facility] History of Present Illness History of Present Illness Consult date/time: 11/01/21 14:46 Consult reason: atrial fibrillation Reason For Visit: thyroid cancer Narrative: This is a 61-year-old lady who I am asked to see at the [facility] of the Anesthesiology Service in the postanesthesia care unit because of atrial fibrillation with left bundle branch block aberrancy. The patient is unknown to me prior to this consultation. She follows regularly with Dr. Ho for management of her atrial fibrillation which is her known chronic rhythm for several years. The patient saw him in consultation initially for this and attempts at cardioversion were on successful. This was attributed to morbid obesity. She also has a diagnosis of underlying sleep apnea as the likely etiology for atrial fibrillation. Patient had a thyroid nodule removed several weeks ago and the pathology of which came back showing evidence of thyroid cancer and so she was admitted this morning as an outpatient for elective completion of the remainder of her thyroid ectomy and the operation essentially was uneventful. Apparently in the surgery she was felt seen to become tachycardic at which time her QRS became wide and she was concerned to be having ventricular arrhythmias according to the anesthesia service. She was given a bolus of amiodarone the operation was completed and she was placed in the postanesthesia care unit. She is awake alert responsive only complaining of some mild incisional neck pain at this time. Her telemetry shows that she is in atrial fibrillation with a heart rate in the 80s to low 100s. When her heart rate decelerations the QRS becomes narrow in the heart rate increases she shows left bundle-branch block aberrancy. She does not have any other cardiac diagnosis besides the atrial fibrillation Dr. Ho's office notes indicate that she does not have any significant left ventricular dysfunction or valvular disease. She takes a combination of metoprolol 50 mg daily and diltiazem 60 mg q.12 hours for rate control and as well as Xarelto for at systemic anticoagulation. Obviously the Xarelto has been placed on hold for today's thyroidectomy. Review of Systems Constitutional: Constitutional: Reports no additional constitutional complaints and Reports difficulty sleeping Eyes: Eyes: Reports no additional eye complaints ENT: Reports system reviewed and no additional complaints, except as documented Cardiovascular: Cardiovascular: Reports no additional cardiovascular complaints Respiratory: Respiratory: Reports no additional respiratory complaints Gastrointestinal: Gastrointestinal: Reports no additional gastrointestinal complaints Musculoskeletal: Musculoskeletal: Reports back pain Integumentary/Breasts: Skin/Breast: Reports system reviewed and no additional complaints, except as docu Neurologic: Reports system reviewed and no additional complaints, except as documented Endocrine: Endocrine: Reports no additional endocrine complaints Hematologic/Lymphatic: Hematologic/Lymphatic: Reports no ad
[2021-11-01] MEDS: METOPROLOL TARTRATE INJ 5 MG/5 ML VIAL IV PUSH (14:48)
[2021-11-01] MEDS: oxyCODONE HCL (*CRX) 5 MG TAB IR PO (15:40)
== END 2021-11-01 16:15 | disposition home or self-care (01) ==
PROVIDERS: PCP Physician Assistant; Visit Provider Otolaryngology
PROC: (CPT 60260; principal; 2021-11-01 09:00)
DX: C73 Malignant neoplasm of thyroid gland (principal); E04.2 Nontoxic multinodular goiter; I44.7 Left bundle-branch block, unspecified; I48.20 Chronic atrial fibrillation, unspecified; I10 Essential (primary) hypertension; G47.33 Obstructive sleep apnea (adult) (pediatric); Z79.01 Long term (current) use of anticoagulants; Z79.84 Long term (current) use of oral hypoglycemic drugs; E66.01 Morbid (severe) obesity due to excess calories; Z68.43 Body mass index [BMI] 50.0-59.9, adult
CPT/HCPCS: 60260; 60512; 36415; 82948; 83970; 88305; 88307; 88331; 93005; A9270; J0282; J0330; J0690; J1100; J2250; J2704; J3010; J7120

== ENCOUNTER 2022-10-10 08:45 | Outpatient (CLI) | payer BC, SELFPAY ==
--- NOTE | 2022-10-10 08:59 | ECHO_ITS ---
Patient Info Name: Allyn Ramirez Age: 62 years : 1960 Gender: Female Ht: 68 in Wt: 400 lbs BSA: 3.07 m2 HR: 92 bpm Heart Rhythm: Atrial Fibrillation Technical Quality: Good Exam Date: 10/10/2022 9:21 AM Exam Location: [facility] [place] Patient Status: Outpatient Admit Date: 10/10/2022 BP unable to obtain due to: Other Staff Ordering Physician: Serge Ho DO Rubbish Collection Supervisor: Celena Fernando RDCS Attending Provider: Serge Ho DO Referring Physician: Vic ZHOU; Exam Type: CA echo doppler color flow Study Info Indications - Unspecified Atrial Fibrillation Complete two-dimensional, color flow and Doppler transthoracic echocardiogram is performed. Summary 1. Complete two-dimensional, color flow and Doppler transthoracic echocardiogram is performed. 2. Left ventricular chamber dimension is moderately enlarged. 3. Left ventricular systolic function is moderately reduced, estimated at 40-45%. 4. The left ventricular diastolic function is indeterminate. 5. Tissue doppler is not performed. 6. Atrial fibrillation. 7. Left atrial chamber dimension is moderately enlarged. 8. Right atrial chamber dimension is moderately enlarged. 9. There is mild mitral valve regurgitation. 10. There is mild tricuspid valve regurgitation. 11. Mild pulmonary hypertension, estimated pulmonary arterial systolic pressure is 43 mmHg. 12. Dilated inferior vena cava with >50% collapse upon inspiration consistent with elevated right atrial pressure, 10 mmHg. Left Ventricle Atrial fibrillation. Tissue doppler is not performed. Left ventricular chamber dimension is moderately enlarged. Left ventricular systolic function is moderately reduced, estimated at 40-45%. The left ventricular diastolic function is indeterminate. Right Ventricle Right ventricular systolic function is normal and with normal TAPSE 2.1 cm. Right ventricular chamber dimension is normal. Left Atria Left atrial chamber dimension is moderately enlarged. Right Atria Right atrial chamber dimension is moderately enlarged. Aortic Valve The aortic valve is trileaflet. There is no aortic valve stenosis. There is no aortic valve regurgitation. Pulmonic Valve There is no pulmonic regurgitation. Mitral Valve There is no mitral valve stenosis. There is mild mitral valve regurgitation. Tricuspid Valve There is mild tricuspid valve regurgitation. Mild pulmonary hypertension, estimated pulmonary arterial systolic pressure is 43 mmHg. Pericardium/Pleural There is no pericardial effusion. Inferior Vena Cava Dilated inferior vena cava with >50% collapse upon inspiration consistent with elevated right atrial pressure, 10 mmHg. Aorta The aortic root size at the sinus of Valsalva is normal. Left Ventricular Outflow Tract Name Value Normal LVOT 2D LVOT Diameter 2.3 cm LVOT Doppler LVOT Peak Gradient 5 mmHg LVOT Mean Gradient 2 mmHg LVOT VTI 21 cm LVOT VTI/AV VTI Ratio 0.6 LVOT Stroke Volume 88 ml
== END 2022-10-10 08:46 | disposition home or self-care (01) ==
PROVIDERS: PCP Physician Assistant; Visit Provider Internal Medicine Cardiovascular Disease
DX: I48.91 Unspecified atrial fibrillation (principal); I08.3 Combined rheumatic disorders of mitral, aortic and tricuspid valves
CPT/HCPCS: 93306

== ENCOUNTER 2022-11-05 08:47 | Outpatient (CLI) | payer BC, SELFPAY ==
--- NOTE | ~2022-11-05 | NM_ITS ---
EXAMINATION: NM scott stress w perfusion DATE: 11/05/2022 11:43 INDICATION: Heart palpitations. TECHNIQUE: Rest images were obtained following intravenous administration of 10.4 mCi Tc99m tetrofosm in (Myoview). The patient was infused intravenously with Lexiscan (regadenoson). Then, 32.7 mCi Tc99m tetrofosmin (Myoview) was administered intravenously, and supine and prone stress images were obtain ed. Data was reconstructed into short axis and horizontal and vertical long axis SPECT images. Gated SPECT images were also obtained. COMPARISON: None. FINDINGS: There is a small, mild, fixed perfusion defect involving mid anterior and mid anteroseptal segments, consistent with infarct. No reversible component to suggest ischemia. There is no segmenta l wall motion abnormality. Left ventricular ejection fraction measures 42%. IMPRESSION: 1. Small area of mild infarct involving mid anterior and mid anteroseptal segments of left ventricle. 2. Decreased left ventricular ejection fraction measuring 42%. Reviewed, dictated and finalized at location A. TARY LAWYER IMPRESSION: 1. Small area of mild infarct involving mid anterior and mid anteroseptal segme nts of left ventricle. 2. Decreased left ventricular ejection fraction measuring 42%.
--- NOTE | 2022-11-05 08:52 | EST_ITS ---
Patient Info Name: Allyn Ramirez Age: 62 years : 1960 Gender: Female Ht: 68 in Wt: 397 lbs BSA: 3.05 m2 HR: 92 bpm BP: 134 / 81 mmHg Heart Rhythm: Left Bundle Branch Block Exam Date: 11/05/2022 9:57 AM Exam Location: [facility] Stress Patient Status: Outpatient Admit Date: 11/05/2022 Staff Ordering Physician: Serge Ho DO Attending Provider: Serge Ho DO Exercise Technologist: Susy Escudero CT Exercise Physician: Serge Ho DO Exam Type: CA stress scott w NM Study Info Indications R00.2 - Palpitations A regadenoson stress test was performed. Summary 1. 1. Inconclusive lexiscan stress test for ischemic ST changes by ECG criteria due to baseline LBBB. 2. 2. Stable hemodynamics throughout the test. 3. 3. Nuclear scan to follow and will be reported separately. Please correlate with it. 4. 4. Patient informed of the above results. Protocol: Lexiscan Stress ECG Details Stage: REST Duration (min): 1 min : 29 sec HR (bpm): 77 SBP (mmHg): 134 DBP (mmHg): 81 Stage: REST Duration (min): 13 min : 37 sec HR (bpm): 76 SBP (mmHg): 134 DBP (mmHg): 81 Stage: STAGE 1 Duration (min): 0 min : 59 sec HR (bpm): 101 SBP (mmHg): 134 DBP (mmHg): 81 Stage: RECOVERY Duration (min): 1 min : 0 sec HR (bpm): 121 SBP (mmHg): 124 DBP (mmHg): 89 Stage: RECOVERY Duration (min): 2 min : 0 sec HR (bpm): 95 SBP (mmHg): 124 DBP (mmHg): 89 Stage: RECOVERY Duration (min): 3 min : 0 sec HR (bpm): 96 SBP (mmHg): 154 DBP (mmHg): 88 Stage: RECOVERY Duration (min): 3 min : 10 sec HR (bpm): 78 SBP (mmHg): 154 DBP (mmHg): 88 Rest HR: 76 bpm Peak HR: 132 bpm Rest Sys BP: 134 mmHg Peak Sys BP: 154 mmHg Max Pred HR: 160 bpm % Max Pred HR: 83 % Target HR: 136 bpm Max RPP: 20,328 bpm*mmHg Termination Reason: Completed protocol Cardiac Symptoms: None Total Time: 1 min : 0 sec Rest Rico BP: 81 mmHg Peak Rico BP: 88 mmHg Total Dose: 0.4 mg Resting ECG Atrial fibrillation, LBBB. Stress ECG No ST changes. Arrhythmias None. Report Signatures
== END 2022-11-05 08:48 | disposition home or self-care (01) ==
PROVIDERS: PCP Physician Assistant; Visit Provider Internal Medicine Cardiovascular Disease
DX: R00.2 Palpitations (principal); I48.20 Chronic atrial fibrillation, unspecified
CPT/HCPCS: 78452; 93017; A9502; J2785

== ENCOUNTER 2022-12-09 08:04 | Emergency (ER) | payer BC, SELFPAY ==
--- NOTE | 2022-12-09 08:10 | ED.URI ---
HPI - URI/Sore Throat General Chief Complaint: Upper Respiratory Infection Stated Complaint: Sore Throat Time Seen by Provider: 12/09/22 08:11 Source: patient, RN notes reviewed and old records reviewed Mode of arrival: ambulatory Limitations: no limitations History of Present Illness HPI Narrative: 62-year-old female presents to the [facility] with complaints a sore throat for several days. Denies any chest pain or shortness of breath. Denies fevers. Has used cough drops and Tylenol for her symptoms MD elicited complaint: sore throat Related Data Home Medications Medication Instructions Recorded Confirmed zinc sulfate-vitamin C 200 mg-100 1 tablet PO DAILY 10/24/21 09/23/22 mg tablet semaglutide 1 mg/dose (2 mg/1.5 1 mg subcut WEEKLY 09/23/22 09/23/22 mL) subcutaneous pen injector (Ozempic) Allergies Allergy/AdvReac Type Severity Reaction Status Date / Time latex Allergy Unknown BLISTERS, Verified 12/09/22 08:13 ITCHING Review of Systems Review of Systems: All systems reviewed & are unremarkable except as noted in HPI and below Constitutional: Constitutional: Reports no additional constitutional complaints Eyes: Eyes: Reports no additional eye complaints ENT: Reports as per HPI and Reports sore throat Cardiovascular: Cardiovascular: Reports no additional cardiovascular complaints, Denies chest pain and Denies dyspnea Respiratory: Respiratory: Reports no additional respiratory complaints, Denies chest congestion, Denies cough and Denies dyspnea Gastrointestinal: Gastrointestinal: Reports no additional gastrointestinal complaints, Denies abdominal pain, Denies nausea and Denies vomiting Musculoskeletal: Musculoskeletal: Reports no additional musculoskeletal complaints Integumentary/Breasts: Skin/Breast: Reports system reviewed and no additional complaints, except as docu Neurologic: Reports system reviewed and no additional complaints, except as documented Psychiatric: Psychiatric: Reports no additional psychiatric complaints Allergic/Immunologic: Allergic/Immunologic: Reports no additional allergic/immunologic complaints PMFSH Past Medical History Medical History Atrial fibrillation with controlled ventricular rate Chronic atrial fibrillation SPRAGUE (dyspnea on exertion) Essential hypertension with goal blood pressure less than 140/90 GERD (gastroesophageal reflux disease) Hyperglycemia Hypersomnia Hypertension Irregular heartbeat Morbid obesity with BMI of 60.0-69.9, adult Obstructive sleep apnea VALENTINA on CPAP Palpitations with regular cardiac rhythm Papillary thyroid carcinoma Pulmonary HTN Surgical History Surgical History H/O: hysterectomy Hx of cholecystectomy Family History Family History Father Diabetes mellitus Carcinoma of colon Patient's father is Mother Hypertension Patient's mother is in good health Sibling Cerebrovascular accident Family history of malignant neoplasm of thyroid Social History Social History Smoking status: Never smoker Second hand tobacco smoke exposure: No Alcohol intake: never Substance use: never Substance use type: does not use Gender identity (if verbalized by the patient): Female Sexual Orientation (if Verbalized by the Patient): Straight or Heterosexual Spiritual care concerns: No Comments At the time of my signature, I reviewed and agree with the nursing past medical, surgical, social, and family history. There is no relevant family history pertinent to the patient complaint. Exam Const: General: cooperative, no acute distress, well developed, alert, ill appearing acutely (mild), uncomfortable, well groomed and well nourished; No acute distress Nutritional Appearance: well nour
[2022-12-09 08:14] VITALS: BP 151/98; PULSE 98; RESP 18; TEMP 36.9; O2SAT 96
== END 2022-12-09 08:43 | disposition home or self-care (01) ==
PROVIDERS: Emergency Provider Nurse Practitioner; PCP Physician Assistant
DX: J03.90 Acute tonsillitis, unspecified (principal); I48.20 Chronic atrial fibrillation, unspecified; I10 Essential (primary) hypertension; K21.9 Gastro-esophageal reflux disease without esophagitis; E66.01 Morbid (severe) obesity due to excess calories; Z68.43 Body mass index [BMI] 50.0-59.9, adult; G47.33 Obstructive sleep apnea (adult) (pediatric); I27.20 Pulmonary hypertension, unspecified
CPT/HCPCS: 87081; 87880; 99213; G0463

== ENCOUNTER 2022-12-09 17:53 | Observation (INO) | payer BC, SELFPAY ==
[2022-12-09] VITALS (19 sets, daily range): BP systolic 125–131; BP diastolic 75–127; PULSE 30–127; RESP 16–32; TEMP 37; O2SAT 89–95
--- NOTE | ~2022-12-09 | XR_ITS ---
EXAMINATION: XR chest 2V DATE: 12/09/2022 19:50 INDICATION: Shortness of breath. Hemoptysis. TECHNIQUE: Frontal and lateral views of the chest were obtained. COMPARISON: None. FINDINGS: There is a diffuse interstitial pattern, consistent with mild pulmonary edema. No pleural e ffusion or pneumothorax. Cardiomegaly is noted. IMPRESSION: 1. Mild pulmonary edema. 2. Cardiomegaly. Reviewed, dictated and finalized at location A. OR MAGAZINE
--- NOTE | ~2022-12-09 | XR_ITS ---
Clinical Indication: Pneumonia PA and lateral views of the chest: Comparison: 12/09/2022 Findings: Questionable minimal bibasilar pulmonary edema. No pleural effusion or pneumothorax. Cardi omediastinal silhouette is within normal limits. Bones and soft tissues are unremarkable. Impression: Questionable minimal bibasilar pulmonary edema. Reviewed, dictated and finalized at location . FUNDER Impression: Questionable minimal bibasilar pulmonary edema.
--- NOTE | ~2022-12-09 | CT_ITS ---
EXAMINATION: CT soft tissue neck w con DATE: 12/09/2022 20:00 INDICATION: Right tonsillar swelling. Dysphagia. TECHNIQUE: Computed tomography (CT) of the neck was performed with 75 mL Omnipaque-350 intravenous co ntrast. Automated exposure control and iterative reconstruction technique were employed. The dose-maddison gth product was 605.79 mGy-cm. COMPARISON: None FINDINGS: The visualized portions of the lung apices demonstrate patchy airspace and groundglass opac ities in the upper lobes. There are small pleural effusions. There is enlargement of the right palati ne tonsil. There is mucosal thickening in the oropharynx and hypopharynx. No abscess. There are no pa thologically enlarged lymph nodes. There is fat stranding in right neck, consistent with edema versus inflammation. The paranasal sinuses are clear. The mastoid air cells are normal. There is mild cervi mark spondylosis. IMPRESSION: 1. Enlargement of the right palatine tonsil and mucosal thickening in the oropharynx and hypopharynx, likely inflammation. No abscess. 2. Airspace and groundglass opacities in the upper lobes of the lungs, consistent with pulmonary ki a versus pneumonia. 3. Small pleural effusions. Reviewed, dictated and finalized at location A. N GRINDER IMPRESSION: 1. Enlargement of the right palatine tonsil and mucosal thickening in the oroph arynx and hypopharynx, likely inflammation. No abscess. 2. Airspace and groundglass opacities in the upper lobes of the lungs, consiste nt with pulmonary edema versus pneumonia. 3. Small pleural effusions.
--- NOTE | 2022-12-09 18:34 | ECG_ITS ---
Measurements Intervals [place] Rate: 168 P: SC: 0 QRS: 129 QRSD: 148 T: 61 QT: 282 QTc: 472 Interpretive Statements ATRIAL FIBRILLATION WITH RAPID VENTRICULAR RESPONSE LEFT BUNDLE BRANCH BLOCK ABNORMAL ECG COMPARED TO ECG 11/01/2021 13:32:03 HEART RATE HAS INCREASED Electronically Signed On 12-09-2022 19:58:13 FISH PEDDLER by Serge Ho D.O.
[2022-12-09 18:48] LABS: Basophils Absolute Auto 0.1 K/mm3 (0.0-0.1); Basophils Percent Auto 0.4 % (0.2-1.2); Immature Granulocyte Percent A 0.5 % (0-0.5); Lymphocytes Absolute Auto 0.56 K/mm3 (0.9-3.2); Lymphocytes Percent Auto 3.1 % (18.3-44.2); Mean Corpuscular HGB Conc 32.5 g/dl (32-36); Mean Corpuscular Hemoglobin 27.4 pg (26-34); Mean Corpuscular Volume 84.2 fl (80-100); Monocytes Absolute Auto 1.1 K/mm3 (0.1-0.6); Monocytes Percent Auto 6.3 % (2.6-8.5); Neutrophils Absolute Auto 16.3 K/mm3 (1.3-6.7); Neutrophils Percent Auto 89.7 % (45.5-73.1); Platelet Count Result 215 k/mm3 (150-375); Red Blood Count 4.75 M/mm3 (4.2-5.4); Red Cell Distribution Width 14.6 % (11.5-14.5); White Blood Count 18.2 K/mm3 (4.5-10.0)
[2022-12-09 19:02] LABS: Alanine Aminotransferase 25 U/L (6-35); Albumin Level 4.5 g/dL (3.5-5.1); Alkaline Phosphatase 75 U/L (38-126); Anion Gap 11 mmol/L (8-16); Aspartate Amino Transferase 28 U/L (14-36); Blood Urea Nitrogen 11 mg/dL (7-17); Calcium 9.3 mg/dL (8.4-10.2); Carbon Dioxide 25 mmol/L (22-30); Chloride 97 mmol/L (98-107); Estimated CRCL calculation 172 ml/min; Estimated Glomerular Filt Rate > 60; Glucose 159 mg/dL (65-110); Sodium 133 mmol/L (137-145)
--- NOTE | 2022-12-09 19:09 | ED.GENADULT ---
HPI - General Adult General Chief complaint: Shortness of Breath/Dyspnea Stated complaint: sore throat, coughing up blood, sob Time Seen by Provider: 12/09/22 18:55 History of Present Illness HPI narrative: Patient is a 62-year-old female with a history of hypothyroidism, A. fib on Xarelto, hypertension, diabetes presenting with sore throat. Patient states that she has had an increasingly sore throat over the last 2 days. States that today she has been having difficulty swallowing due to the severe pain. States that she was seen at urgent care earlier today and sent home with antibiotics. Unfortunately, patient then had an episode of spitting up blood. She states that she did not cough up blood, she just cleared her throat and when she spit there was blood in the saliva. She does report some mild shortness of breath she states feels related to the throat pain. She denies any chest pain. She denies palpitations. No recent fevers, headache, abdominal pain, vomiting, diarrhea, leg swelling. Patient states that she did have a tooth extracted about a week ago on the right side of her mouth. Related Data Home Medications Medication Instructions Recorded Confirmed zinc sulfate-vitamin C 200 mg-100 1 tablet PO DAILY 10/24/21 12/10/22 mg tablet semaglutide 1 mg/dose (2 mg/1.5 1 mg subcut WEEKLY 09/23/22 12/10/22 mL) subcutaneous pen injector (Ozempic) diltiazem HCl 60 mg tablet 60 mg PO BID 12/09/22 12/10/22 metoprolol succinate 50 mg 50 mg PO DAILY 12/09/22 12/10/22 tablet,extended release 24 hr rivaroxaban 20 mg tablet (Xarelto) 20 mg PO DAILY 12/09/22 12/10/22 Allergies Allergy/AdvReac Type Severity Reaction Status Date / Time latex Allergy Unknown BLISTERS, Verified 12/09/22 18:34 ITCHING Review of Systems Review of Systems: All systems reviewed & are unremarkable except as noted in HPI and below PMFSH Past Medical History Medical History Atrial fibrillation status post cardioversion 02/2019 unsuccessful after 3 attempts CHF (congestive heart failure) Echocardiogram 09/2022: Left ventricular systolic function moderately reduced EF 40-45%, indeterminate diastolic function, moderate biatrial enlargement, mild tricuspid and mitral valve regurgitation, mild pulmonary hypertension with RVSP of 43, elevated right atrial pressures Chronic atrial fibrillation Essential hypertension with goal blood pressure less than 140/90 GERD (gastroesophageal reflux disease) Hearing loss, bilateral Hyperparathyroidism Morbid obesity with BMI of 60.0-69.9, adult Obstructive sleep apnea VALENTINA on CPAP CPAP since December 2018: CPAP 17 cm water Papillary thyroid carcinoma Pulmonary HTN Type 2 diabetes mellitus Surgical History Surgical History H/O: hysterectomy History of total thyroidectomy left thyroidectomy August 2021 right thyroidectomy 10/2021 Hx of cholecystectomy Family History Family History Father Diabetes mellitus Carcinoma of colon Mother Hypertension Patient's mother is in good health Sibling Cerebrovascular accident Family history of malignant neoplasm of thyroid Social History Social History Social History: The patient lives at home with her [place]. she had fraternal twins when she was 37 years old and her son just moved out of the home. 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 She is a lifelong nonsmoker. She rarely drinks alcohol and only in moderation. She denies any illicit substance use. Code status: Full code Surrogate decision maker: Daughter Smoking status: Never smoker Second hand tobacco smoke exposure: No Alcohol intake: never Substance use: never Substance use type: does not use Lack of Transp
[2022-12-09] MEDS: HYDROmorphone HCL INJ (*CRX) 1 MG/ML SYR 0.5 MG IV PUSH (19:41)
[2022-12-09] MEDS: SODIUM CHLORIDE 0.9% IV 1,000 ML 999 ML IV CONT (19:43)
--- NOTE | 2022-12-09 20:00 | PC.NURSE ---
Got approval from provider to only collect one set of cultures d/t pt's IV access being very challenging to accomplish, and techs not being able to find andrew access. Phlebotomy fail as well..
[2022-12-09 20:40] LABS: NT Pro B Type Natriuretic Pept 3880 pg/mL (19.9-100); Troponin I < 0.012 ng/mL (0.000-0.034)
[2022-12-09 21:02] LABS: Strep Group A RT-PCR NOT DETECTED (Negative)
[2022-12-09 21:14] LABS: Influenza A QL RT-PCR Negative (Negative); Influenza B QL RT-PCR Negative (Negative); SARS-CoV-2 RNA PCR Negative
[2022-12-09 22:31] LABS: Troponin I 0.014 ng/mL (0.000-0.034)
--- NOTE | 2022-12-09 22:55 | PM.IMHP ---
H&P: HPI History of Present Illness Date/Time: 12/09/22 22:55 Chief Complaint: Spitting up blood Narrative: 62-year-old female with past medical history of diabetes, hypothyroidism, atrial fibrillation on chronic anticoagulation and systolic heart failure who presented to the ER with spitting up blood. the patient reports she had a tooth extracted on November 27 with a temporary bridge placed. then on the the patient began having mild sore throat with progressive increasing discomfort in her throat culminating and difficulty to manage her secretions. She had fever up to 100?. She noticed pain in her submandibular area to palpation. She reports that her symptoms persisted despite her daughter performing lymphatic massage. She went to urgent care on the morning of the and received a prescription for clindamycin. However later in the morning she began having blood-tinged mucus and decided to come to the ER for evaluation. In the ER CT scan of the soft tissues of the neck was performed which demonstrated enlargement of the right palatine tonsil and mucosal thickening in the oropharynx and hypopharynx likely inflammation without noted abscess. Also noted were airspace opacities and ground-glass opacities upper lobes along consistent with pulmonary edema versus pneumonia. the patient reports that she is not having any orthopnea or paroxysmal nocturnal dyspnea. She has not been able asleep in over 24 hours due to her severe sore throat and difficulty managing secretions. However and today she began having shortness of breath. She denies any cough, or congestion. She reports that she has been having clear sputum or mucus prior adduction that she has been spitting out since the . She does have chronic atrial fibrillation but denies sensation of palpitations. She has noted that her smart watch has been telling her that her heart rate is been elevated since this morning. She denies any orthopnea or paroxysmal nocturnal dyspnea. She denies any lower extremity swelling. In the ER a normal saline bolus was ordered but the patient only received proximally 250 mL of the bolus before nursing staff disconnected the fluids to obtain the patient's blood cultures from her IV site. Unfortunately her fluid bolus was not resumed. Also the patient's 2nd set of blood cultures were not obtained in the ER and the patient's antibiotics that were ordered prior to admission were not administered until after midnight. Patient did have 1 dose of Decadron that was reportedly administered in the ER. ER provider was worried that the patient may be fluid overloaded given her history of heart failure ordered a dose of Lasix which patient also did not receive. The patient reports that her shortness of breath has improved after receiving the fluids and the dexamethasone in the ER. The patient is still reporting some lightheadedness with position changes and states that she has been dehydrated. She has only been able to eat a few bites of oatmeal in the last 24 hours and has had very little oral intake. She reports some generalized headache. She has not had any nausea or vomiting. The patient reports that she has been compliant with her medications but did not receive her home Cardizem this evening. The ER provider had ordered the patient's home Cardizem which was not administered by the ER nursing staff. The patient has been afebrile since presentation but was tachycardic and tachypneic. Tachycardia has improved but the patient remains tachypneic with respiratory rate around 20 at the time of my evaluation. Review of Systems Review of Systems: 12 systems were reviewed with pertinent positives and negatives per HPI. Except as documented in the HPI, all other systems were reviewed and are negative. [facility] Past Medical History Medical History (Updated 12/10/22 @ 01:20 by Indu Luna DO) Atrial fibrillation status post cardioversion 02/2019 unsuccessful after 3 a
[2022-12-10] VITALS (13 sets, daily range): BP systolic 136–153; BP diastolic 70–95; PULSE 70–113; RESP 14–18; TEMP 36.1–36.8; O2SAT 92–96; BMI 60.7
--- NOTE | 2022-12-10 00:16 | PC.NURSE ---
Pt had two extra-large/soft/brown.
[2022-12-10 00:45] LABS: Lactic Acid Reflex 1.1 mmol/L (0.7-2.0)
[2022-12-10] MEDS: AMPICILLIN SULB 3 GM/NS 100 ML 3 GM/100 ML VIAL IVPB ×5 (01:28→23:31)
[2022-12-10] MEDS: dilTIAZem HCL 60 MG TABLET PO ×3 (01:53→20:39)
[2022-12-10] MEDS: KETOROLAC 30 MG/ML VIAL (*BKC) IV PUSH (01:56)
[2022-12-10] MEDS: SODIUM CHLORIDE 0.9% IV 1,000 ML 75 ML IV CONT ×2 (03:19→17:29)
--- NOTE | 2022-12-10 03:19 | ADMGEN ---
This patient, Allyn Ramirez, was admitted to 3 [facility] Surg Room 301-01. Patient/family oriented to hospital policies and general routines including ID bracelet, bed and alarms, visiting hours, pain management, procedures, bathroom and other care routines, personal items, smoking policy, room service/diet, and visiting hours. Information on how to activate the Rapid Response Team has been discussed. Patient/Family are encouraged to report perceived risks to care and to ask questions if they do not understand what they are told or what they should do.
[2022-12-10 05:34] LABS: Basophils Absolute Auto 0.1 K/mm3 (0.0-0.1); Basophils Percent Auto 0.5 % (0.2-1.2); Eosinophils Percent Auto 0.3 % (0-4.4); Hematocrit 37.9 % (37.0-47.0); Hemoglobin 12.1 g/dL (12.0-15.0); Immature Granulocyte Absolute 0.04 K/mm3 (0.00-0.031); Immature Granulocyte Percent A 0.3 % (0-0.5); Lymphocytes Absolute Auto 1.33 K/mm3 (0.9-3.2); Lymphocytes Percent Auto 11.3 % (18.3-44.2); Mean Corpuscular HGB Conc 31.9 g/dl (32-36); Mean Corpuscular Hemoglobin 27.3 pg (26-34); Mean Corpuscular Volume 85.6 fl (80-100); Mean Platelet Volume 12.1 fl (7.4-10.4); Monocytes Absolute Auto 0.8 K/mm3 (0.1-0.6); Monocytes Percent Auto 6.9 % (2.6-8.5); Neutrophils Absolute Auto 9.6 K/mm3 (1.3-6.7); Neutrophils Percent Auto 80.7 % (45.5-73.1); Platelet Count Result 163 k/mm3 (150-375); Red Blood Count 4.43 M/mm3 (4.2-5.4); Red Cell Distribution Width 14.5 % (11.5-14.5); White Blood Count 11.8 K/mm3 (4.5-10.0)
[2022-12-10 05:40] LABS: Anion Gap 7 mmol/L (8-16); Blood Urea Nitrogen 14 mg/dL (7-17); Calcium 8.5 mg/dL (8.4-10.2); Carbon Dioxide 25 mmol/L (22-30); Chloride 97 mmol/L (98-107); Estimated CRCL calculation 148 ml/min; Estimated Glomerular Filt Rate > 60; Glucose 109 mg/dL (65-110); Potassium 3.4 mmol/L (3.4-5.0); Sodium 129 mmol/L (137-145)
[2022-12-10] MEDS: DEXAMETHASONE SOD PHOS INJ 4 MG/ML VIAL IV PUSH ×4 (05:50→23:30)
[2022-12-10] MEDS: LEVOTHYROXINE SODIUM 125 MCG TABLET 375 MCG PO (05:52)
--- NOTE | 2022-12-10 08:02 | P.PNIM_ITS ---
Progress Note: A&P Assessment and Plan (1) Sepsis: Code(s): A41.9 - Sepsis, unspecified organism Status: Acute Assessment and Plan: Sepsis criteria met with leukocytosis, tachycardia and tachypnea. She may also concomitant bilateral pneumonia. * Patient has sepsis likely due to tonsillitis. * Strep rapid antigen was negative. * Pt started on Augmentin and Decadron * Blood cultures x1 were obtained in the ER and a 2nd blood culture was obtained when the patient arrived to the medical floor. 12/10/22 * Blood cultures pending * WBC's decreased from 18.2 to 11.8 (2) Acute tonsillitis: Qualifiers: Pharyngitis/tonsillitis etiology: unspecified etiology Qualified Code(s): J03.90 - Acute tonsillitis, unspecified Code(s): J03.90 - Acute tonsillitis, unspecified Status: Inactive Assessment and Plan: Pt had tooth extraction on 11/27/22 and sore throat developed on 12/04/22. Having difficultly managing secretions. * CT neck: enlargement of right palatine tonsil and mucosal thickening in the oropharynx and hypopharynx. No abscess. Airspace ground-glass opacities in the upper lobes of the lungs, pulmonary edema vs pneumonia. Small pleural effusions. * Pt started on Augmentin * Rapid Step negative. * Throat culture ordered * blood cultures pending. * ENT consulted and appreciate the recommendations (3) Pneumonia: Code(s): J18.9 - Pneumonia, unspecified organism Status: Acute Assessment and Plan: CT revealed airspace ground-glass opacities in the upper lobes of the lungs, pulmonary edema vs pneumonia. * Pt not experiencing cough, congestion and fever but having some shortness of breath * Symptoms improved with fluids and steroids. * Pt on Augmentin for tonsillitis, should cover pneumonia (4) Type 2 diabetes mellitus: Qualifiers: Diabetes mellitus complication status: without complication Diabetes mellitus local company intermodal truck driver insulin use: without custodial use Qualified Code(s): E11.9 - Type 2 diabetes mellitus without complications Code(s): E11.9 - Type 2 diabetes mellitus without complications Status: Chronic Assessment and Plan: Chronic * Pt on Ozempic once weekly injection * NovoLog 2-5 units sliding scale * Hypoglycemic protocol * AccuCheck achs (5) VALENTINA on CPAP: Code(s): G47.33 - Obstructive sleep apnea (adult) (pediatric); Z99.89 - Dependence on other enabling machines and devices Status: Chronic Assessment and Plan: Chronic CPAP ordered (6) CHF (congestive heart failure): Code(s): I50.9 - Heart failure, unspecified Status: Acute Assessment and Plan: X-ray does suggest pneumonia versus heart failure * BNP is not that elevated at 3000. * Will monitor strict I&O's and daily weights. * Pneumonia seems more likely given clinical picture. (7) Hypothyroidism: Code(s): E03.9 - Hypothyroidism, unspecified Status: Chronic Assessment and Plan: Continue synthroid (8) Atrial fibrillation with controlled ventricular rate: Code(s): I48.91 - Unspecified atrial fibrillation Status: Chronic Assessment and Plan: Patient did have AFib with RVR in the ER but heart rate improved after IV fluid hydration. * Patient received her evening dose of Cardizem while in the ER but after her heart rate had already improved.
--- NOTE | 2022-12-10 08:02 | PM.IMPN ---
Progress Note: A&P Assessment and Plan (1) Sepsis: Code(s): A41.9 - Sepsis, unspecified organism Status: Acute Assessment and Plan: Sepsis criteria met with leukocytosis, tachycardia and tachypnea. She may also concomitant bilateral pneumonia. Patient has sepsis likely due to tonsillitis. Strep rapid antigen was negative. Pt started on Augmentin and Decadron Blood cultures x1 were obtained in the ER and a 2nd blood culture was obtained when the patient arrived to the medical floor. 12/10/22 Blood cultures pending WBC's decreased from 18.2 to 11.8 (2) Acute tonsillitis: Qualifiers: Pharyngitis/tonsillitis etiology: unspecified etiology Qualified Code(s): J03.90 - Acute tonsillitis, unspecified Code(s): J03.90 - Acute tonsillitis, unspecified Status: Inactive Assessment and Plan: Pt had tooth extraction on 11/27/22 and sore throat developed on 12/04/22. Having difficultly managing secretions. CT neck: enlargement of right palatine tonsil and mucosal thickening in the oropharynx and hypopharynx. No abscess. Airspace ground-glass opacities in the upper lobes of the lungs, pulmonary edema vs pneumonia. Small pleural effusions. Pt started on Augmentin Rapid Step negative. Throat culture ordered blood cultures pending. ENT consulted and appreciate the recommendations (3) Pneumonia: Code(s): J18.9 - Pneumonia, unspecified organism Status: Acute Assessment and Plan: CT revealed airspace ground-glass opacities in the upper lobes of the lungs, pulmonary edema vs pneumonia. Pt not experiencing cough, congestion and fever but having some shortness of breath Symptoms improved with fluids and steroids. Pt on Augmentin for tonsillitis, should cover pneumonia (4) Type 2 diabetes mellitus: Qualifiers: Diabetes mellitus complication status: without complication Diabetes mellitus extermination inspector insulin use: without extermination inspector use Qualified Code(s): E11.9 - Type 2 diabetes mellitus without complications Code(s): E11.9 - Type 2 diabetes mellitus without complications Status: Chronic Assessment and Plan: Chronic Pt on Ozempic once weekly injection NovoLog 2-5 units sliding scale Hypoglycemic protocol AccuCheck achs (5) VALENTINA on CPAP: Code(s): G47.33 - Obstructive sleep apnea (adult) (pediatric); Z99.89 - Dependence on other enabling machines and devices Status: Chronic Assessment and Plan: Chronic CPAP ordered (6) CHF (congestive heart failure): Code(s): I50.9 - Heart failure, unspecified Status: Acute Assessment and Plan: X-ray does suggest pneumonia versus heart failure BNP is not that elevated at 3000. Will monitor strict I&O's and daily weights. Pneumonia seems more likely given clinical picture. (7) Hypothyroidism: Code(s): E03.9 - Hypothyroidism, unspecified Status: Chronic Assessment and Plan: Continue synthroid (8) Atrial fibrillation with controlled ventricular rate: Code(s): I48.91 - Unspecified atrial fibrillation Status: Chronic Assessment and Plan: Patient did have AFib with RVR in the ER but heart rate improved after IV fluid hydration. Patient received her evening dose of Cardizem while in the ER but after her heart rate had already improved. Will resume patient's home metoprolol succinate and Cardizem. Will hold Xarelto until evaluated by ENT. Subjective Date/time seen: 12/10/22 08:02 Interval history: 12/10/22 62-year-old female with history of hypothyroidism, CHF, type 2 diabetes, VALENTINA, and AFib. Patient presents to the ED on 12/09/2022 due to sore throat and inability to control secretions. Patient was found to have markedly enlarged right palatine tonsil without abscess. Today patient states that her sore throat has improved although
[2022-12-10 08:03] LABS: Glucose Point of Care 127 mg/dl (65-105)
[2022-12-10] MEDS: ZINC SULFATE 220 MG CAPSULE PO (08:21)
[2022-12-10] MEDS: METOPROLOL SUCCINATE EXT REL 50 MG TABCR PO (08:21)
[2022-12-10] MEDS: TRIAMTERENE 37.5 MG/HCTZ 25 MG (MAXZIDE) TABLET 1 TAB PO (08:22)
[2022-12-10] MEDS: LOSARTAN POTASSIUM 25 MG TABLET PO (08:23)
[2022-12-10] MEDS: ASCORBIC ACID 250 MG TABLET PO (08:23)
[2022-12-10 11:49] LABS: Glucose Point of Care 147 mg/dl (65-105)
--- NOTE | 2022-12-10 16:31 | P.PCNBED_ITS ---
Procedures Other Procedures Procedure 1: Other Procedure: [facility] All consents obtained. Risks benefits discussed in great detail. Afrin lidocaine applied bilateral nasal passages. Flexible scope passed. Concentric narrowing of the airway slightly more narrow on the right no infectious appearing mucosa mucosa was normal appearing no purulence no masses. Patent airway. Tonsil was visible in the oropharynx at sedated inflamed right side. Patient tolerated the procedure well. Patent airway easily intubated ball.
--- NOTE | 2022-12-10 16:37 | WPDCN ---
Assessment and Plan Assessment and plan (1) Recurrent tonsillitis: Code(s): J03.91 - Acute recurrent tonsillitis, unspecified Status: Acute Assessment and Plan: CT personally reviewed I do not believe there is a drainable abscess at this time. Please have the patient follow up with me Thursday afternoon in office. I would keep the patient for 24 more hours on IV antibiotics. Please discharge on 10 days of Augmentin [id number] as well as a Medrol Dosepak. Follow up with me Thursday afternoon. Please call the office to confirm. Office staff informed. If there is any soft palate fluid peritonsillar abscess I will drain in office. Scope is reassuring airway patent. HPI Data of Consult Date/Time: 12/10/22 16:37 Requesting Physician: Indu Luna DO Primary Care Provider: Scotty Rose PA-C Consult Narrative Reason for consult: Cellulitis on CT. Tonsillitis. Dysphagia. Narrative: Allyn Ramirez is a 62 year old female Previously known to me as I performed thyroidectomy history of thyroid cancer I believe papillary. Status post completion with RA I in January of last year. Presents with sore throat several days currently not on antibiotics at home. Admitted with dysphagia sore throat. On Unasyn. Decadron Q 6. Patient reports vast improvement. White count I believe is down to 11 from 18 over the past 24 hours. Presents to me for further evaluation treatment given persistent dysphagia again improving, and asymmetric soft palate. Review of Systems Review of Systems: All systems reviewed & are unremarkable except as noted in HPI and below PMFSH Past Medical History Medical History (Updated 12/10/22 @ 16:40 by Tejas Brown MD) Atrial fibrillation status post cardioversion 02/2019 unsuccessful after 3 attempts CHF (congestive heart failure) Echocardiogram 09/2022: Left ventricular systolic function moderately reduced EF 40-45%, indeterminate diastolic function, moderate biatrial enlargement, mild tricuspid and mitral valve regurgitation, mild pulmonary hypertension with RVSP of 43, elevated right atrial pressures Chronic atrial fibrillation Essential hypertension with goal blood pressure less than 140/90 GERD (gastroesophageal reflux disease) Hearing loss, bilateral Hyperparathyroidism Morbid obesity with BMI of 60.0-69.9, adult Obstructive sleep apnea VALENTINA on CPAP CPAP since December 2018: CPAP 17 cm water Papillary thyroid carcinoma Pulmonary HTN Type 2 diabetes mellitus Surgical History Surgical History (Updated 12/10/22 @ 00:48 by Indu Luna DO) H/O: hysterectomy History of total thyroidectomy left thyroidectomy August 2021 right thyroidectomy 10/2021 Hx of cholecystectomy Family History Family History (Updated 12/10/22 @ 01:03 by Indu Luna DO) Father Diabetes mellitus Carcinoma of colon Mother Hypertension Patient's mother is in good health Sibling Cerebrovascular accident Family history of malignant neoplasm of thyroid Social History Social History (Updated 12/10/22 @ 01:02 by Indu Luna DO) Social History: The patient lives at home with her Luxembourger Johns. she had fraternal twins when she was 37 years old and her son just moved out of the home. 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 She is a lifelong nonsmoker. She rarely drinks alcohol and only in moderation. She denies any illicit substance use. Code status: Full code Surrogate decision maker: Daughter Smoking status: Never smoker Second hand tobacco smoke exposure: No Alcohol intake: never Substance use: never Substance use type: does not use Lack of Transportation: No Lack of Food: Never True Current Housing: I Have Housing Concerned About Future Housing: No Difficulty Paying Gas/Electric Bills: No Difficulty Paying for Meds: No Currently Unemployed: No Education: Bachelor's Degree Difficulty w/ Childcar
[2022-12-10 16:51] LABS: Glucose Point of Care 169 mg/dl (65-105)
[2022-12-10] MEDS: METOPROLOL TARTRATE INJ 5 MG/5 ML VIAL IV PUSH (20:39)
[2022-12-10 20:50] LABS: Glucose Point of Care 171 mg/dl (65-105)
--- NOTE | 2022-12-10 21:43 | P.PNCROSS_ITS ---
Event Note Event Note Event Note: 12/10/2022 at 21:30 Nursing staff called to notify me that the patient is having persistent tachycardia. Patient has known chronic atrial fibrillation. She is on metoprolol succinate 50 mg p.o. daily and Cardizem 60 mg p.o. b.i.d.. The patient had received 1 time dose of IV Lopressor 5 mg due to heart rate as high as 210 when she was up and ambulating to the bathroom. The patient does report increased shortness of breath with ambulation. I suspect that the patient like ly has some chronically uncontrolled atrial fibrillation that is worsened with her sepsis and tonsillitis. The patient appears euvolemic clinically now and is having good urine output. Will stop the patient's IV fluids. We I will increase the patient's metoprolol succinate 100 mg p.o. in a.m.. Will give 1 time dose of 50 mg p.o. metoprolol tartrate now and I will increase the patient's home Cardizem CD to 180 mg p.o. daily instead of short-acting Cardizem. The patient's blood pressures are elevated and she should be able to tolerate these increase in medication doses. Given the patient's history of diabetes and heart failure she would benefit from her blood pressure goal to be closer to 120/80 at baseline. Will continue patient's home angiotensin receptor jose r. If we needed to eliminate a medication to allow for more room for heart rate control we could consider stopping the patient's thiazide diuretics. I will advance the patient's diet to consistent carbohydrate/sodium restricted as tolerated since patient reports significant improvement in her dysphagia and is able to manage her secretions. Will resume home Xarelto. First dose to be given tonight. May discontinue SCDs.
[2022-12-10] MEDS: RIVAROXABAN 20 MG TABLET PO (23:30)
[2022-12-10] MEDS: METOPROLOL TARTRATE 50 MG TAB PO (23:30)
[2022-12-11] VITALS (11 sets, daily range): BP systolic 142–152; BP diastolic 78–87; PULSE 70–94; RESP 16–18; TEMP 35.9–36.4; O2SAT 97–99
[2022-12-11] MEDS: AMPICILLIN SULB 3 GM/NS 100 ML 3 GM/100 ML VIAL IVPB ×4 (05:31→23:42)
[2022-12-11] MEDS: LEVOTHYROXINE SODIUM 125 MCG TABLET 250 MCG PO (05:31)
[2022-12-11] MEDS: DEXAMETHASONE SOD PHOS INJ 4 MG/ML VIAL IV PUSH ×4 (05:31→23:42)
[2022-12-11 06:14] LABS: Hematocrit 39.2 % (37.0-47.0); Hemoglobin 12.8 g/dL (12.0-15.0); Mean Corpuscular HGB Conc 32.7 g/dl (32-36); Mean Corpuscular Hemoglobin 27.2 pg (26-34); Mean Corpuscular Volume 83.2 fl (80-100); Mean Platelet Volume 12.8 fl (7.4-10.4); Platelet Count Result 184 k/mm3 (150-375); Red Blood Count 4.71 M/mm3 (4.2-5.4); Red Cell Distribution Width 14.1 % (11.5-14.5)
[2022-12-11 06:31] LABS: Alanine Aminotransferase 25 U/L (6-35); Albumin Level 4.1 g/dL (3.5-5.1); Alkaline Phosphatase 88 U/L (38-126); Anion Gap 7 mmol/L (8-16); Aspartate Amino Transferase 24 U/L (14-36); Bilirubin,Total 0.9 mg/dL (0.2-1.3); Blood Urea Nitrogen 12 mg/dL (7-17); Calcium 8.7 mg/dL (8.4-10.2); Carbon Dioxide 28 mmol/L (22-30); Chloride 100 mmol/L (98-107); Estimated CRCL calculation 150 ml/min; Estimated Glomerular Filt Rate > 60; Glucose 147 mg/dL (65-110); Potassium 3.4 mmol/L (3.4-5.0); Sodium 135 mmol/L (137-145)
--- NOTE | 2022-12-11 07:14 | P.CDI_ITS ---
CDI Query Clarified Diagnosis Clarified Diagnosis: BNP elevated on 12/09/22 lab work. Documented history of CHF. CHF noted on assessment and plan. Please specify type and acuity of heart failure if known. * Acute * Chronic * Acute on Chronic * Unknown * Systolic * Diastolic * Combined Systolic and Diastolic * Unknown
--- NOTE | 2022-12-11 07:14 | WPDCDIQUERY2 ---
CDI Query Clarified Diagnosis Clarified Diagnosis: BNP elevated on 12/09/22 lab work. Documented history of CHF. CHF noted on assessment and plan. Please specify type and acuity of heart failure if known. Acute Chronic Acute on Chronic Unknown Systolic Diastolic Combined Systolic and Diastolic Unknown
[2022-12-11 08:09] LABS: Glucose Point of Care 162 mg/dl (65-105)
[2022-12-11 08:10] LABS: Thyroid Stimulating Hormone Reflex 0.059 uIU/mL (0.465-4.68)
--- NOTE | 2022-12-11 08:26 | P.PNIM_ITS ---
Progress Note: A&P Assessment and Plan (1) Sepsis: Code(s): A41.9 - Sepsis, unspecified organism Status: Acute Assessment and Plan: Sepsis criteria met with leukocytosis, tachycardia and tachypnea. She may also concomitant bilateral pneumonia. * Patient has sepsis likely due to tonsillitis. * Strep rapid antigen was negative. * Pt started on Augmentin and Decadron * Blood cultures x1 were obtained in the ER and a 2nd blood culture was obtained when the patient arrived to the medical floor. 12/10/22 * Blood cultures pending * WBC's decreased from 18.2 to 11.8 12/11/22 * Patient's white blood cell count within normal limits today * Patient diet advanced * Patient tolerating well and not having much difficulty with swallowing (2) Acute tonsillitis: Qualifiers: Pharyngitis/tonsillitis etiology: unspecified etiology Qualified Code(s): J03.90 - Acute tonsillitis, unspecified Code(s): J03.90 - Acute tonsillitis, unspecified Status: Inactive Assessment and Plan: Pt had tooth extraction on 11/27/22 and sore throat developed on 12/04/22. Having difficultly managing secretions. * CT neck: enlargement of right palatine tonsil and mucosal thickening in the oropharynx and hypopharynx. No abscess. Airspace ground-glass opacities in the upper lobes of the lungs, pulmonary edema vs pneumonia. Small pleural effusions. * Pt started on Augmentin * Rapid Step negative. * Throat culture ordered * blood cultures pending. * ENT consulted and appreciate the recommendations 12/11/22 * ENT would like to follow patient as an outpatient * Patient diet advanced and tolerating well (3) Pneumonia: Code(s): J18.9 - Pneumonia, unspecified organism Status: Acute Assessment and Plan: CT revealed airspace ground-glass opacities in the upper lobes of the lungs, pulmonary edema vs pneumonia. * Pt not experiencing cough, congestion and fever but having some shortness of breath * Symptoms improved with fluids and steroids. * Pt on Augmentin for tonsillitis, should cover pneumonia * 12/11/2022 stable, not complaining of symptoms (4) Atrial fibrillation with controlled ventricular rate: Code(s): I48.91 - Unspecified atrial fibrillation Status: Chronic Assessment and Plan: Patient did have AFib with RVR in the ER but heart rate improved after IV fluid hydration. * Patient received her evening dose of Cardizem while in the ER but after her heart rate had already improved. * Will resume patient's home metoprolol succinate and Cardizem. * Will hold Xarelto until evaluated by ENT. 12/11/22 * Will restart Xarelto 12/11/22 * Pt seen by adult neurologist and was found to have HR of 210 with ambulation * Increase metoprolol succinate to 100 mg po, increase Cardizem CD to 180 mg po * Cardiology consulted and appreciate recommendations * Spoke with Dr. Ho and he advised starting digoxin 125 mcg b.i.d. * Dr. Ho is comfortable with patient discharge tomorrow and to follow-up with him in 1 week * Advised limited activity. (5) Type 2 diabetes mellitus: Qualifiers: Diabetes mellitus complication status: without complication Diabetes mellitus watermaster insulin use: without watermaster use Qualified Code(s): E11.9 - Type 2 diabetes mellitus without complications Code(s): E11.9 - Type 2 diabetes mellitus without complications Status: Chronic Assessment and Plan: Chronic * Pt on Ozempic once weekly injection * NovoLog
--- NOTE | 2022-12-11 08:26 | PM.IMPN ---
Progress Note: A&P Assessment and Plan (1) Sepsis: Code(s): A41.9 - Sepsis, unspecified organism Status: Acute Assessment and Plan: Sepsis criteria met with leukocytosis, tachycardia and tachypnea. She may also concomitant bilateral pneumonia. Patient has sepsis likely due to tonsillitis. Strep rapid antigen was negative. Pt started on Augmentin and Decadron Blood cultures x1 were obtained in the ER and a 2nd blood culture was obtained when the patient arrived to the medical floor. 12/10/22 Blood cultures pending WBC's decreased from 18.2 to 11.8 12/11/22 Patient's white blood cell count within normal limits today Patient diet advanced Patient tolerating well and not having much difficulty with swallowing (2) Acute tonsillitis: Qualifiers: Pharyngitis/tonsillitis etiology: unspecified etiology Qualified Code(s): J03.90 - Acute tonsillitis, unspecified Code(s): J03.90 - Acute tonsillitis, unspecified Status: Inactive Assessment and Plan: Pt had tooth extraction on 11/27/22 and sore throat developed on 12/04/22. Having difficultly managing secretions. CT neck: enlargement of right palatine tonsil and mucosal thickening in the oropharynx and hypopharynx. No abscess. Airspace ground-glass opacities in the upper lobes of the lungs, pulmonary edema vs pneumonia. Small pleural effusions. Pt started on Augmentin Rapid Step negative. Throat culture ordered blood cultures pending. ENT consulted and appreciate the recommendations 12/11/22 ENT would like to follow patient as an outpatient Patient diet advanced and tolerating well (3) Pneumonia: Code(s): J18.9 - Pneumonia, unspecified organism Status: Acute Assessment and Plan: CT revealed airspace ground-glass opacities in the upper lobes of the lungs, pulmonary edema vs pneumonia. Pt not experiencing cough, congestion and fever but having some shortness of breath Symptoms improved with fluids and steroids. Pt on Augmentin for tonsillitis, should cover pneumonia 12/11/2022 stable, not complaining of symptoms (4) Atrial fibrillation with controlled ventricular rate: Code(s): I48.91 - Unspecified atrial fibrillation Status: Chronic Assessment and Plan: Patient did have AFib with RVR in the ER but heart rate improved after IV fluid hydration. Patient received her evening dose of Cardizem while in the ER but after her heart rate had already improved. Will resume patient's home metoprolol succinate and Cardizem. Will hold Xarelto until evaluated by ENT. 12/11/22 Will restart Xarelto 12/11/22 Pt seen by live in housekeeper nanny and was found to have HR of 210 with ambulation Increase metoprolol succinate to 100 mg po, increase Cardizem CD to 180 mg po Cardiology consulted and appreciate recommendations Spoke with Dr. Ho and he advised starting digoxin [address] Ho is comfortable with patient discharge tomorrow and to follow-up with him in 1 week Advised limited activity. (5) Type 2 diabetes mellitus: Qualifiers: Diabetes mellitus complication status: without complication Diabetes mellitus intermodal truck driver insulin use: without intermodal truck driver use Qualified Code(s): E11.9 - Type 2 diabetes mellitus without complications Code(s): E11.9 - Type 2 diabetes mellitus without complications Status: Chronic Assessment and Plan: Chronic Pt on Ozempic once weekly injection NovoLog 2-5 units sliding scale Hypoglycemic protocol AccuCheck achs (6) VALENTINA on CPAP: Code(s): G47.33 - Obstructive sleep apnea (adult) (pediatric); Z99.89 - Dependence on other enabling machines and devices Status: Chronic Assessment and Plan: Chronic CPAP ordered (7) CHF (congestive heart failure): Code(s): I50.9 - Heart failure, unspecified Status: Chronic Assessment and Plan: X-ray does tuyet
[2022-12-11] MEDS: TRIAMTERENE 37.5 MG/HCTZ 25 MG (MAXZIDE) TABLET 1 TAB PO (08:59)
[2022-12-11] MEDS: LOSARTAN POTASSIUM 25 MG TABLET PO (09:00)
[2022-12-11] MEDS: METOPROLOL SUCCINATE EXT REL 100 MG TABCR PO (09:00)
[2022-12-11] MEDS: dilTIAZem HCL CD 180 MG CAP.ER.24H PO (09:00)
[2022-12-11] MEDS: ASCORBIC ACID 250 MG TABLET PO (09:01)
[2022-12-11] MEDS: ZINC SULFATE 220 MG CAPSULE PO (09:01)
[2022-12-11 12:01] LABS: Glucose Point of Care 166 mg/dl (65-105)
[2022-12-11 14:28] LABS: Free T4 Free Thyroxine Reflex 2.52 ng/dL (0.78-2.19)
--- NOTE | 2022-12-11 15:24 | ECG_ITS ---
Measurements Intervals Enterprise Rate: 75 P: NV: 0 QRS: 20 QRSD: 161 T: 70 QT: 427 QTc: 478 Interpretive Statements ATRIAL FIBRILLATION LEFT BUNDLE BRANCH BLOCK ABNORMAL ECG COMPARED TO ECG 12/09/2022 18:39:31 HEART RATE HAS DECREASED Electronically Signed On 12-11-2022 16:11:52 EMT P by Serge Ho D.O.
[2022-12-11 17:12] LABS: Glucose Point of Care 163 mg/dl (65-105)
[2022-12-11] MEDS: DIGOXIN TAB 125 MCG TABLET PO (17:24)
[2022-12-11] MEDS: RIVAROXABAN 20 MG TABLET PO (17:25)
[2022-12-11 20:41] LABS: Glucose Point of Care 194 mg/dl (65-105)
[2022-12-12] VITALS: PULSE 66
[2022-12-12 04:00] VITALS: PULSE 63
[2022-12-12] MEDS: LEVOTHYROXINE SODIUM 125 MCG TABLET 250 MCG PO (05:25)
[2022-12-12] MEDS: AMPICILLIN SULB 3 GM/NS 100 ML 3 GM/100 ML VIAL IVPB (05:26)
[2022-12-12] MEDS: DEXAMETHASONE SOD PHOS INJ 4 MG/ML VIAL IV PUSH (05:26)
[2022-12-12 05:52] VITALS: BP 148/93; PULSE 92; RESP 16; TEMP 36.6; O2SAT 99
[2022-12-12 06:46] LABS: Hematocrit 39.3 % (37.0-47.0); Hemoglobin 12.9 g/dL (12.0-15.0); Mean Corpuscular HGB Conc 32.8 g/dl (32-36); Mean Corpuscular Hemoglobin 27.4 pg (26-34); Mean Corpuscular Volume 83.6 fl (80-100); Mean Platelet Volume 12.2 fl (7.4-10.4); Platelet Count Result 208 k/mm3 (150-375); Red Cell Distribution Width 14.1 % (11.5-14.5); White Blood Count 10.8 K/mm3 (4.5-10.0)
[2022-12-12 07:05] LABS: Alanine Aminotransferase 32 U/L (6-35); Albumin Level 3.6 g/dL (3.5-5.1); Alkaline Phosphatase 72 U/L (38-126); Anion Gap 8 mmol/L (8-16); Aspartate Amino Transferase 31 U/L (14-36); Bilirubin,Total 0.9 mg/dL (0.2-1.3); Blood Urea Nitrogen 16 mg/dL (7-17); Calcium 8.5 mg/dL (8.4-10.2); Carbon Dioxide 26 mmol/L (22-30); Chloride 101 mmol/L (98-107); Estimated CRCL calculation 149 ml/min; Estimated Glomerular Filt Rate > 60; Glucose 161 mg/dL (65-110); Potassium 3.6 mmol/L (3.4-5.0); Sodium 135 mmol/L (137-145)
[2022-12-12 08:00] VITALS: PULSE 122
[2022-12-12 08:23] LABS: Glucose Point of Care 169 mg/dl (65-105)
--- NOTE | 2022-12-12 09:26 | PM.CNCAR ---
Assessment and Plan Assessment and plan (1) Chronic atrial fibrillation: Code(s): I48.20 - Chronic atrial fibrillation, unspecified Status: Acute Assessment and Plan: Advise to keep well hydrated. On Diltiazem ER 180 mg daily and Metoprolol succinate 100 mg daily. On Xarelto. Started on Digoxin 125 mcg PO BID to improve HR control. May d/c home from cardiology standpoint and F/U with me in 1 week. (2) Hypertension: Code(s): I10 - Essential (primary) hypertension Status: Acute Assessment and Plan: Stable. (3) VALENTINA on CPAP: Code(s): G47.33 - Obstructive sleep apnea (adult) (pediatric); Z99.89 - Dependence on other enabling machines and devices Status: Chronic (4) Morbid obesity with BMI of 60.0-69.9, adult: Code(s): E66.01 - Morbid (severe) obesity due to excess calories; Z68.44 - Body mass index [BMI] 60.0-69.9, adult Status: Acute History of Present Illness History of Present Illness Consult date/time: 12/12/22 09:26 Reason For Visit: CHF Narrative: 62 yr old woman who is my regular cardiology patient presented to hospital with throat pain. She has a history of severe VALENTINA on CPAP (followed by Nba Solano NP), hypertension, morbid obesity, chronic atrial fibrillation with failed DC cardioversion. Reports she had dental procedure about a week ago and subsequently had throat swelling, increased secretions and pain and found to have tonsillitis. Her atrial fib is OK at rest but as soon as she got up it could go up to 200 bpm. She was not drinking fluids in past several days until now due to throat pain. Previously, she was diagnosed with thyroid cancer and had thyroidectomy.? She is chronically [place] at walking 2-3 minutes or in from parking lot. Denies chest pain.? She feels occasional intermittent palpitations mainly at night when lying down. She is having trouble losing weight but did lose a few pounds. Denies chest pain, sob, orthopnea, edema. Cardiovascular Procedures Echo/MUGA:: 10/10/22 Echo: EF 40-45%, mod LVE, mod biatrial enlargement, mild MR/TR, RVSP 43 mmHg. 10/26/18 Echo: EF 55%, grade III diastolic dysfunction (E/E' 9), mod biatrial enlargement, mild MAC, mild-mod MR, trace TR, RVSP 44 mmHg. Electrophysiology:: 11/11/21 EKG: Atrial fibrillation at 84 bpm, LBBB. 09/03/21 EKG: Atrial fibrillation at 102 bpm, low voltage in precordial leads, borderline T wave in inferior leads. 03/16/19 Cardioversion: CORINA/Cardioversion: No BENJAMÍN thrombus.? Unsuccessful after 3 DC cardioversion attempts. 08/04/18 EKG: Atrial fib with RVR, IVCD, delayed precordial R/S transition, nonspecific T in anterolat/inf leads. Stress Tests:: 10/19/18 Sleep Study: Severe VALENTINA with desaturation. Review of Systems Review of Systems: All systems reviewed & are unremarkable except as noted in HPI and below Constitutional: Constitutional: Reports as per HPI, Denies chills and Denies fever(s) ENT: Reports as per HPI Cardiovascular: Cardiovascular: Reports as per HPI, Denies chest pain and Denies irregular heart rhythm Respiratory: Respiratory: Reports as per HPI and Denies dyspnea Gastrointestinal: Gastrointestinal: Reports as per HPI and Denies abdominal pain Genitourinary: Genitourinary: Reports as per HPI and Denies dysuria Musculoskeletal: Musculoskeletal: Reports as per HPI Neurologic: Reports as per HPI, Denies dizziness and Denies syncope [facility] Past Medical History Medical History (Updated 12/12/22 @ 09:30 by Serge Ho DO) Atrial fibrillation status post cardioversion 02/2019 unsuccessful after 3 attempts CHF (congestive heart failure) Echocardiogram 09/2022: Left ventricular systolic function moderately reduced EF 40-45%, indeterminate diastolic function, moderate biatrial enlargement, mild tricuspid and mitral valve regurgitation, mild pulmonary hypertension with RVSP of 43, elevated right atrial pressures Chronic atrial fibrillation Essential hypertension with goal blood
[2022-12-12 09:28] VITALS: PULSE 92
[2022-12-12] MEDS: LOSARTAN POTASSIUM 25 MG TABLET PO (09:28)
[2022-12-12] MEDS: METOPROLOL SUCCINATE EXT REL 100 MG TABCR PO (09:28)
[2022-12-12] MEDS: TRIAMTERENE 37.5 MG/HCTZ 25 MG (MAXZIDE) TABLET 1 TAB PO (09:28)
[2022-12-12] MEDS: DIGOXIN TAB 125 MCG TABLET PO (09:28)
[2022-12-12] MEDS: dilTIAZem HCL CD 180 MG CAP.ER.24H PO (09:28)
[2022-12-12] MEDS: ZINC SULFATE 220 MG CAPSULE PO (09:29)
[2022-12-12] MEDS: ASCORBIC ACID 250 MG TABLET PO (09:29)
--- NOTE | 2022-12-12 11:36 | PM.PNGS ---
Progress Note: A&P Assessment and Plan (1) Acute tonsillitis: Code(s): J03.90 - Acute tonsillitis, unspecified Status: Acute Assessment and Plan: No need to follow-up today. Patient will call me next week if symptoms worsen or fail to improve completely. Recommend discharge on Augmentin. Given her improvement could consider holding steroids and starting over the weekend should she worsen. Subjective Subjective Date/Time Seen: 12/12/22 11:36 Interval history: Patient reports feeling much much better Review of Systems Review of Systems: All systems reviewed & are unremarkable except as noted in HPI and below Exam Narrative: infectious appearing ulceration edema now resolved. Objective Data Vital Signs Vital Signs: Vital Signs - 24 hr 12/11/22 14:42 12/11/22 17:24 12/11/22 12:00 Temperature 36.1 C L Pulse Rate 88 88 94 Respiratory Rate 18 Blood Pressure 142/78 H Pulse Oximetry 99 Oxygen Delivery 12/11/22 16:00 12/11/22 20:00 12/11/22 22:00 Temperature 35.9 C L Pulse Rate 93 84 Respiratory Rate 16 Blood Pressure 146/87 H Pulse Oximetry 99 97 Oxygen Delivery Room Air 12/11/22 20:00 12/12/22 00:00 12/12/22 04:00 Temperature Pulse Rate 85 66 63 Respiratory Rate Blood Pressure Pulse Oximetry Oxygen Delivery 12/12/22 05:52 12/12/22 09:28 12/12/22 09:28 Temperature 36.6 C Pulse Rate 92 92 92 Respiratory Rate 16 Blood Pressure 148/93 H Pulse Oximetry 99 Oxygen Delivery Intake/Output Intake/Output: Intake & Output 12/09/22 12/10/22 12/11/22 12/12/22 23:59 23:59 23:59 23:59 Intake Total 1000 3040 2870 1230 Output Total 2700 3050 250 Balance 1000 340 -180 980 Meds/Results Medications: Active Medications Generic Name Dose Route Start Last Admin Trade Name Freq PRN Reason Stop Dose Admin Ascorbic Acid 250 mg 12/10/22 09:00 12/12/22 09:29 Ascorbic Acid 250 Mg Tablet PO 250 mg QAM AVIVA Administration Dexamethasone Sodium Phosphate 4 mg 12/10/22 06:00 12/12/22 05:26 Dexamethasone Sod Phos Inj 4 Mg/Ml Vial IV PUSH 4 mg Q6HR AVIVA Administration Dextrose 12.5 gm 12/09/22 23:05 Dextrose 50% 25 Gm/50 Ml Syringe IV PUSH PRN PRN Hypoglycemia Protocol Digoxin 125 mcg 12/11/22 17:00 12/12/22 09:28 Digoxin Tab 125 Mcg Tablet PO 125 mcg BID AVIVA Administration Diltiazem HCl 180 mg 12/11/22 09:00 12/12/22 09:28 Diltiazem Hcl Cd 180 Mg Cap.Er.24h PO 180 mg QAM AVIVA Administration Glucagon 1 mg 12/09/22 23:05 Glucagon For Inj 1 Mg Vial IM PRN PRN Hypoglycemia Protocol Glucose 15 gm 12/09/22 23:05 Glucose Oral Gel 15 Gm Of Glucse In 37.5 Gm Tube PO PRN PRN Hypoglycemia Protocol Dextrose 1,000 mls @ 100 mls/hr 12/09/22 23:05 Dextrose 5% 1,000 Ml IVPB PRN PRN Hypoglycemia Protocol Ampicillin Sodium/Sulbactam Sodium 3 gm in 100 mls @ 200 mls/hr 12/10/22 00:00 12/12/22 05:56 Unasyn 3 Gm/Ns 100 Ml IVPB Infused Q6H AVIVA Infusion Insulin Aspart 2 - 5 units 12/10/22 08:00 12/12/22 08:00 Insulin Aspart (*Bkc) 100 Units/Ml SUB-Q Not Given TIDWM [facility] Protocol Levothyroxine Sodium 375 mcg 12/10/22 06:30 12/10/22 05:52 Levothyroxine Sodium 125 Mcg Tablet PO 375 mcg [id number] AVIVA Administration Levothyroxine Sodium 250 mcg 12/11/22 06:30 12/12/22 05:25 Levothyroxine Sodium 125 Mcg Tablet PO 250 mcg [id number] [facility] Administration Losartan Potassium 25 mg 12/10/22 09:00 12/12/22 09:28 Losartan Potassium 25 Mg Tablet PO 25 mg DAILY AVIVA Administration Metoprolol Succinate 100 mg 12/11/22 09:00 12/12/22 09:28 Metoprolol Succinate Ext Rel 100 Mg Tabcr PO 100 mg QAM AVIVA Administration Metoprolol Tartrate 5 mg 12/10/22 21:42 Metoprolol Tartrate Inj 5 Mg/5 Ml Vial IV PUSH Q4H PRN Heart rate greater than 110 Ondansetron
--- NOTE | 2022-12-12 14:51 | P.DS_ITS ---
DS: Admitting Diagnosis Discharge Date 12/12/22 Admitting Diagnosis Tonsillitis DS: Discharge Diagnosis Discharge Diagnosis (1) Sepsis: Code(s): A41.9 - Sepsis, unspecified organism Status: Acute Assessment and Plan: Sepsis criteria met with leukocytosis, tachycardia and tachypnea. She may also concomitant bilateral pneumonia. * Patient has sepsis likely due to tonsillitis. * Strep rapid antigen was negative. * Pt started on Augmentin and Decadron * Blood cultures x1 were obtained in the ER and a 2nd blood culture was obtained when the patient arrived to the medical floor. 12/10/22 * Blood cultures pending * WBC's decreased from 18.2 to 11.8 12/11/22 * Patient's white blood cell count within normal limits today * Patient diet advanced * Patient tolerating well and not having much difficulty with swallowing (2) Acute tonsillitis: Qualifiers: Pharyngitis/tonsillitis etiology: unspecified etiology Qualified Code(s): J03.90 - Acute tonsillitis, unspecified Code(s): J03.90 - Acute tonsillitis, unspecified Status: Inactive Assessment and Plan: Pt had tooth extraction on 11/27/22 and sore throat developed on 12/04/22. Having difficultly managing secretions. * CT neck: enlargement of right palatine tonsil and mucosal thickening in the oropharynx and hypopharynx. No abscess. Airspace ground-glass opacities in the upper lobes of the lungs, pulmonary edema vs pneumonia. Small pleural effusions. * Pt started on Augmentin * Rapid Step negative. * Throat culture ordered * blood cultures pending. * ENT consulted and appreciate the recommendations 12/11/22 * ENT would like to follow patient as an outpatient * Patient diet advanced and tolerating well (3) Pneumonia: Code(s): J18.9 - Pneumonia, unspecified organism Status: Acute Assessment and Plan: CT revealed airspace ground-glass opacities in the upper lobes of the lungs, pulmonary edema vs pneumonia. * Pt not experiencing cough, congestion and fever but having some shortness of breath * Symptoms improved with fluids and steroids. * Pt on Augmentin for tonsillitis, should cover pneumonia * 12/11/2022 stable, not complaining of symptoms (4) Atrial fibrillation with controlled ventricular rate: Code(s): I48.91 - Unspecified atrial fibrillation Status: Chronic Assessment and Plan: Patient did have AFib with RVR in the ER but heart rate improved after IV fluid hydration. * Patient received her evening dose of Cardizem while in the ER but after her heart rate had already improved. * Will resume patient's home metoprolol succinate and Cardizem. * Will hold Xarelto until evaluated by ENT. 12/11/22 * Will restart Xarelto 12/11/22 * Pt seen by stitcher set up operator automatic and was found to have HR of 210 with ambulation * Increase metoprolol succinate to 100 mg po, increase Cardizem CD to 180 mg po * Cardiology consulted and appreciate recommendations * Spoke with Dr. Ho and he advised starting digoxin 125 mcg b.i.d. * Dr. Ho is comfortable with patient discharge tomorrow and to follow-up with him in 1 week * Advised limited activity. (5) Type 2 diabetes mellitus: Qualifiers: Diabetes mellitus complication status: without complication Diabetes mellitus watermaster insulin use: without long-term use Qualified Code(s): E11.9 - Type 2 diabetes mellitus without complications Code(s): E11.9 - Type 2 diabetes mellitus without complications Status
--- NOTE | 2022-12-12 14:51 | PM.DS ---
DS: Admitting Diagnosis Discharge Date 12/12/22 Admitting Diagnosis Tonsillitis DS: Discharge Diagnosis Discharge Diagnosis (1) Sepsis: Code(s): A41.9 - Sepsis, unspecified organism Status: Acute Assessment and Plan: Sepsis criteria met with leukocytosis, tachycardia and tachypnea. She may also concomitant bilateral pneumonia. Patient has sepsis likely due to tonsillitis. Strep rapid antigen was negative. Pt started on Augmentin and Decadron Blood cultures x1 were obtained in the ER and a 2nd blood culture was obtained when the patient arrived to the medical floor. 12/10/22 Blood cultures pending WBC's decreased from 18.2 to 11.8 12/11/22 Patient's white blood cell count within normal limits today Patient diet advanced Patient tolerating well and not having much difficulty with swallowing (2) Acute tonsillitis: Qualifiers: Pharyngitis/tonsillitis etiology: unspecified etiology Qualified Code(s): J03.90 - Acute tonsillitis, unspecified Code(s): J03.90 - Acute tonsillitis, unspecified Status: Inactive Assessment and Plan: Pt had tooth extraction on 11/27/22 and sore throat developed on 12/04/22. Having difficultly managing secretions. CT neck: enlargement of right palatine tonsil and mucosal thickening in the oropharynx and hypopharynx. No abscess. Airspace ground-glass opacities in the upper lobes of the lungs, pulmonary edema vs pneumonia. Small pleural effusions. Pt started on Augmentin Rapid Step negative. Throat culture ordered blood cultures pending. ENT consulted and appreciate the recommendations 12/11/22 ENT would like to follow patient as an outpatient Patient diet advanced and tolerating well (3) Pneumonia: Code(s): J18.9 - Pneumonia, unspecified organism Status: Acute Assessment and Plan: CT revealed airspace ground-glass opacities in the upper lobes of the lungs, pulmonary edema vs pneumonia. Pt not experiencing cough, congestion and fever but having some shortness of breath Symptoms improved with fluids and steroids. Pt on Augmentin for tonsillitis, should cover pneumonia 12/11/2022 stable, not complaining of symptoms (4) Atrial fibrillation with controlled ventricular rate: Code(s): I48.91 - Unspecified atrial fibrillation Status: Chronic Assessment and Plan: Patient did have AFib with RVR in the ER but heart rate improved after IV fluid hydration. Patient received her evening dose of Cardizem while in the ER but after her heart rate had already improved. Will resume patient's home metoprolol succinate and Cardizem. Will hold Xarelto until evaluated by ENT. 12/11/22 Will restart Xarelto 12/11/22 Pt seen by calender supervisor and was found to have HR of 210 with ambulation Increase metoprolol succinate to 100 mg po, increase Cardizem CD to 180 mg po Cardiology consulted and appreciate recommendations Spoke with Dr. Ho and he advised starting digoxin [address] Ho is comfortable with patient discharge tomorrow and to follow-up with him in 1 week Advised limited activity. (5) Type 2 diabetes mellitus: Qualifiers: Diabetes mellitus complication status: without complication Diabetes mellitus manager intermediate insulin use: without group home use Qualified Code(s): E11.9 - Type 2 diabetes mellitus without complications Code(s): E11.9 - Type 2 diabetes mellitus without complications Status: Chronic Assessment and Plan: Chronic Pt on Ozempic once weekly injection NovoLog 2-5 units sliding scale Hypoglycemic protocol AccuCheck achs (6) [place] on CPAP: Code(s): G47.33 - Obstructive sleep apnea (adult) (pediatric); Z99.89 - Dependence on other enabling machines and devices Status: Chronic Assessment and Plan: Chronic CPAP ordered (7) CHF (congestive heart failure): Code(s): I50.9 - Hear
== END 2022-12-12 12:05 | disposition home or self-care (01) ==
LOC: ANHED 20:01 → ANH3MEDSUR 23:27
PROVIDERS: Internal Medicine Critical Care Medicine; Admitting Provider Internal Medicine; Emergency Provider Emergency Medicine; PCP Physician Assistant; Visit Provider Internal Medicine
DX: A41.9 Sepsis, unspecified organism (principal); J03.90 Acute tonsillitis, unspecified; J18.9 Pneumonia, unspecified organism; R06.09 Other forms of dyspnea; R13.10 Dysphagia, unspecified; E89.0 Postprocedural hypothyroidism; I48.91 Unspecified atrial fibrillation; R00.0 Tachycardia, unspecified; I11.0 Hypertensive heart disease with heart failure; I50.20 Unspecified systolic (congestive) heart failure; I44.7 Left bundle-branch block, unspecified; R94.31 Abnormal electrocardiogram [ECG] [EKG]; K21.9 Gastro-esophageal reflux disease without esophagitis; E11.9 Type 2 diabetes mellitus without complications; H91.93 Unspecified hearing loss, bilateral; D72.829 Elevated white blood cell count, unspecified; E21.3 Hyperparathyroidism, unspecified; I27.20 Pulmonary hypertension, unspecified; J90 Pleural effusion, not elsewhere classified; E66.01 Morbid (severe) obesity due to excess calories; Z68.44 Body mass index [BMI] 60.0-69.9, adult; G47.33 Obstructive sleep apnea (adult) (pediatric); F10.90 Alcohol use, unspecified, uncomplicated; Z99.89 Dependence on other enabling machines and devices; Z85.850 Personal history of malignant neoplasm of thyroid; Z79.01 Long term (current) use of anticoagulants; Z79.84 Long term (current) use of oral hypoglycemic drugs; Z79.85 Long-term (current) use of injectable non-insulin antidiabetic drugs; Z79.899 Other long term (current) drug therapy; Z83.3 Family history of diabetes mellitus; Z80.0 Family history of malignant neoplasm of digestive organs; Z82.49 Family history of ischemic heart disease and other diseases of the circulatory system
CPT/HCPCS: 31575; 36415; 70491; 71046; 80048; 80053; 82948; 83605; 83735; 83880; 84439; 84443; 84484; 85025; 85027; 87040; 87070; 87636; 87651; 93005; 94660; 96361; 96365; 96366; 96374; 96375; 96376; 99285; A9270; G0378; J0295; J1100; J1170; J1885; J7030; Q9967

== ENCOUNTER 2023-08-19 07:24 | Outpatient (CLI) | payer BC, SELFPAY ==
--- NOTE | 2023-08-19 07:37 | ECHO_ITS ---
Patient Info Name: Allyn Ramirez Age: 63 years : 1960 Gender: Female Ht: 68 in Wt: 385 lbs BSA: 3.00 m2 HR: 91 bpm BP: 135 / 92 mmHg Heart Rhythm: Atrial Fibrillation Technical Quality: Fair Exam Date: 08/19/2023 7:42 AM Exam Location: [facility] Patient Status: Outpatient Admit Date: 08/19/2023 Staff Ordering Physician: Serge Ho DO Crawler Tractor Operator: Sharri Harris RDCS Attending Provider: Serge Ho DO Referring Physician: Vic ZHOU; Exam Type: CA echo dop color flow w con Study Info Indications I51.9 - Heart disease, unspecified Complete two-dimensional, color flow and Doppler transthoracic echocardiogram is performed with contrast to opacify the left ventricle and to improve the deliniation of the left ventricle endocardial borders. Contrast/Agitated Saline Contrast/Ag. Saline: Definity Amount: 3.00 ml Administered By: Sharri Harris RDCS New IV Access: Left Site Condition: IV removed Summary 1. Left ventricular chamber dimension is mildly enlarged. 2. Definity contrast administered improved wall motion interpretation. 3. Left ventricular systolic function is mildly reduced, estimated at 45-50%. 4. There is mild concentric increased left ventricular wall thickness. 5. Left ventricular septal wall motion is abnormal with septal motion related to bundle branch block. 6. The left ventricular diastolic function is abnormal. 7. E/e' 17 is elevated. 8. Atrial fibrillation. 9. Left atrial chamber dimension is severely enlarged. 10. Right atrial chamber dimension is severely enlarged. 11. Mild pulmonary hypertension, estimated pulmonary arterial systolic pressure is 45 mmHg. 12. Dilated inferior vena cava with <50% collapse upon inspiration consistent with significantly elevated right atrial pressure, 15 mmHg. Left Ventricle Atrial fibrillation. E/e' 17 is elevated. Left ventricular chamber dimension is mildly enlarged. Left ventricular systolic function is mildly reduced, estimated at 45-50%. There is mild concentric increased left ventricular wall thickness. Left ventricular septal wall motion is abnormal with septal motion related to bundle branch block. The left ventricular diastolic function is abnormal. Definity contrast administered improved wall motion interpretation. Right Ventricle Right ventricular systolic function is normal and with normal TAPSE 2.4 cm. Right ventricular chamber dimension is normal. Left Atria Left atrial chamber dimension is severely enlarged. Right Atria Right atrial chamber dimension is severely enlarged. Aortic Valve The aortic valve is trileaflet. There is no aortic valve stenosis. There is no aortic valve regurgitation. Pulmonic Valve There is no pulmonic regurgitation. Mitral Valve There is no mitral valve stenosis. There is no mitral valve regurgitation. Tricuspid Valve There is no tricuspid valve regurgitation. Mild pulmonary hypertension, estimated pulmonary arterial systolic pressure is 45 mmHg. Pericardium/Pleural There is no pericardial effusion. Inferior Vena Cava Dilated inferior vena cava with <50% collapse upon inspiration consistent with significantly elevated right atrial pressure, 15 mmHg. Aorta The aortic root size at the sinus of Valsalva is normal. Left Ventricular Outflow Tract Name Value Normal LVOT 2D
[2023-08-19] MEDS: PERFLUTREN LIPID MICROSPHERES 1.5 ML VIAL DILUTED TO 10 ML TOTAL VOLUME IV PUSH (08:45)
--- NOTE | 2023-08-20 07:27 | IVDEFINITY ---
Prior to administration of IV Definity the patient was educated on the risks and benefits of the imaging enhancing agent including potential adverse side effects. The patient verbalized understanding. Allergies were verified. No exclusion criteria were identified and at least one of the following inclusion criteria were met: 1) physician request, 2) patient technically difficult to image (per the [place] [employer] Echocardi[employer] guidelines of two or more segments not discernable within the apical view), or 3) questionable left ventricular function. ?
--- NOTE | 2023-08-20 09:40 | IVDEFINITY ---
Prior to administration of IV Definity the patient was educated on the risks and benefits of the imaging enhancing agent including potential adverse side effects. The patient verbalized understanding. Allergies were verified. No exclusion criteria were identified and at least one of the following inclusion criteria were met: 1) physician request, 2) patient technically difficult to image (per the [place] [employer] Echocardiography guidelines of two or more segments not discernable within the apical view), or 3) questionable left ventricular function. ?
== END 2023-08-19 07:25 | disposition home or self-care (01) ==
PROVIDERS: PCP Physician Assistant; Visit Provider Internal Medicine Cardiovascular Disease
DX: I51.9 Heart disease, unspecified (principal)
CPT/HCPCS: C8929; Q9957

== ENCOUNTER → 2023-12-08 14:23 | Outpatient (CLI) | payer BC, SELFPAY ==
--- NOTE | ~2023-12-08 | US_ITS ---
EXAMINATION: US carotid duplex BI DATE: 12/08/2023 14:44 INDICATION: Carotid atherosclerosis presenting with dizziness and giddiness. TECHNIQUE: Grayscale, color Doppler, and pulsed Doppler images of the cervical carotid arteries were obtained. The degree of vessel stenosis is placed in one of the following categories: normal, <50%, 5 0-69%, >=70% but less than near-occlusion, near-occlusion, or total occlusion. Note that percent sten osis relative to normal distal artery lumen diameter is indirectly measured from velocity measurement s as described by Yaya, et al. Radiology 2003; 229:340-346. COMPARISON: CT neck dated 12/09/2022 FINDINGS: RIGHT: The right common carotid artery (CCA) peak systolic velocity (PSV) is 278 cm/s. The right internal ca rotid artery (ICA) PSV is 92 cm/s. The right ICA end-diastolic velocity (EDV) is 33 cm/s. The right I CA/CCA PSV ratio is 0.3. Grayscale and color Doppler images yield an estimate of <50% diameter reduct ion from plaque in the ICA. The external carotid artery (ECA) PSV is 87 cm/s. There is antegrade flow in the right vertebral artery. LEFT: The left CCA PSV is 143 cm/s. The left ICA PSV is 74 cm/s. The left ICA EDV is 22 cm/s. The left ICA/ CCA PSV ratio is 0.5. Grayscale and color Doppler images yield an estimate of <50% diameter reduction from plaque in the ICA. The ECA PSV is 63 cm/s. There is antegrade flow in the left vertebral artery . IMPRESSION: 1. <50% stenosis in the right internal carotid artery. 2. <50% stenosis in the left internal carotid artery. 3. Cardiac arrhythmia is present. Correlate with EKG. Reviewed, dictated and finalized at location A. [facility]
== END ==
PROVIDERS: PCP Internal Medicine Cardiovascular Disease; Visit Provider Physician Assistant
DX: I65.23 Occlusion and stenosis of bilateral carotid arteries (principal); I49.9 Cardiac arrhythmia, unspecified
CPT/HCPCS: 93880

== ENCOUNTER 2025-04-28 09:51 | Outpatient (CLI) | payer BC, SELFPAY ==
--- OUTSIDE RECORDS SUMMARY | 2025-04-28 09:57 | XMS_ITS | Clinical Summary ---
Author Organization [facility] Address [address] [place] [address] Care Team Providers Care Wire Steward Name Role Phone Scotty Rose PA-C Primary Care Provide r Source Comments [facility],non-owned Affiliates and Associated Physician Practices is amultiple site organization consisting of ambulatory clinics and hospital sitesin [place], [place], [place] and [place]. This disclosure is being madepursuant to the Care Everywhere program and may not contain all information available regarding this patient. Last updated 18.[facility] Allergies Active Allergy Reactions Criticality Noted Date Comments Cat Hair Extract Unknown 04/07/2024 Dog Epithelium Unknown 04/07/2024 Latex Rash Medium 12/31/2020 Medications * Be aware that medications may not be up to date on this document. Alwaysverify current medications with the patient. metFORMIN (GLUCOPHAGE) 500 MG tabletIndicatio ns:Pre-diabetes Take 1 (one) tablet by mouth once daily 2 Active XARELTO 20 MG tablet Take 1 (one) tablet by mouth once daily 2 Active triamterene-hyd roCHLOROthiazid e (DYAZIDE) 37.5-25 MG capsule Take 1 (one) capsule by mouth once daily 2 Active ZINC SULFATE-VITAMIN C MT Active losartan (Cozaar) 25 MG tablet Take 1 (one) tablet by mouth once daily 2 Active digoxin (Lanoxin) 0.125 MG tablet Take 1 (one) tablet by mouth once daily Active Matzim LA 360 MG tablet Take 1 (one) tablet by mouth once daily 4 Active omeprazole (PriLOSEC) 20 MG capsule Take 1 (one) capsule by mouth daily before breakfast 4 Active metoprolol succinate XL 24hr (Toprol XL) 100 MG tablet Take 1 (one) tablet by mouth every morning 4 Active levothyroxine (Synthroid) 125 MCG tabletIndicatio ns:Hypothyroidi sm,Malignant Neoplasm of Thyroid Take 2 (two) tablets by mouth daily before breakfast EXCEPT Thursday AND THURSDAY TAKE THREE PILLS Reasons: Cancer of Thyroid, Underactive Thyroid 210 tablet 3 4 06/02/20 25 Active Mounjaro 15 MG/0.5ML injectionIndica tions:Type 2 diabetes mellitus with hyperglycemia, without long-term current use of insulin (HCC) ADMINISTER 15 MG UNDER THE SKIN EVERY 7 DAYS 2 mL 2 5 Active dilTIAZem coated beads 24hr (Cardizem CD) 180 MG capsule Take 2 (two) capsules by mouth once daily 5 Active Active Problems Problem Noted Date Diagnosed Date Type 2 diabetes mellitus wit h hyperglycemia, without long-term current use of insulin 10/20/2022 Class 3 severe obesity due t o excess calories with serious comorbidity and body mass index (BMI) of 60.0 to 69.9 in adult 10/20/2022 Thyroid cancer 02/17/2022 Overview (02/17/2022): PAPILLARY THYROID CARCINOMA , FOLLICULAR VARIANT, INFILTRATIVE 2 FOCI , 1.5 CM AND 1.1 CM PT1B, NX, MX MARGINS INVOLVED BY CARCINOMA NO ETE Postoperative hypothyroidism 02/17/2022 GERD (gastroesophageal reflux disease) Hypercalcemia Sleep apnea Atrial fibrillation Encounters Date Type Department Care Team Description 03/17/2025 10:20 AM CDT Office Visit [facility] - Endocrinology [address] [place] [address] Neema Quintero DO Type 2 diabetes mellitus with hyperglycemia, without long-term current use of insulin (HCC) (Primary Dx) 03/17/2025 Travel 03/09/2025 Refill [facility] - Endocrinology [address] [place] [phone] Neema Quintero, DO Refill Request 02/03/2025 Orders Only [facility] - Endocrinology [address] [place] [phone] Sctoty Holman MD Thyroid cancer; Postoperative hypothyroidism; Hypothyroidism, acquired from Last 3 Months Family History Medical History Relation Name Comments Hypertension Brother 1 Cancer Brother 2 Hypertension Brother 2 Thyroid Disease Cousin 1 THYROID CANC ER Thyroid Disease Cousin 2 THYROID CANC ER Cancer - Colon Father Diabetes - Type 2 Father Hypertension Father Hypertension Mother CVA Sister Thyroid Disease Sister CANCER Relation Name Status Comments Brother 1 Alive Brother 2 Alive Cousin 1 Cousin 2 Father Mother Alive Sister Alive Social History Tobacco Use Types Packs/Day Years Used Date Smoking Tobacco: Never Smokeless Tobacco: Never Tobacco Cessation:Counseling Given: Not Answered Alcohol Use Standard Drinks/Week Comments Never 0 (1 standard drink = 0.6 oz pur e alcohol) Comments Unknown Sex and Gender Information Value Date Recorded Sex Assigned at Not on file Legal Sex Female 12:14 PM CDT Gender Identity Not on file Sexual Orientation Not on file Last Filed Vital Signs Vital Sign Reading Time Taken Comments Blood Pressure 125/80 03/17/2025 10:12 AM CDT Pulse 71 03/17/2025 10:12 AM CDT Temperature 36.9 C (98.4 F) 03/17/2025 10:12 AM CDT Respiratory Rate 16 10/29/2023 3:31 PM WASTE DISPOSAL ATTENDANT Oxygen Saturation 95% 03/17/2025 10:12 AM CDT Inhaled Oxygen Concentration - - Weight 167.8 kg (370 lb) 03/17/2025 10:12 AM CDT Height 172.7 cm (5' 8) 03/17/2025 10:12 AM CDT Body Mass Index 56.26 03/17/2025 10:12 AM CDT Plan of Treatment Upcoming Encounters Date Type Department Care Team (Late st Contact Info) Description 06/01/2025 10:00 AM CDT Office Visit [facility] - Endocrinology [address] [place] [phone] Scotty Holman MD [address] [place] [address] 08/04/2025 10:00 AM CDT Office Visit [facility] - Endocrinology [address] [place] [phone] Neema Quintero DO [address] [place] [address] Health Maintenance Due Date Last Done Comments COLOGUARD (AGES 45-75) - COLON CA SCREENING 1960 COLON MONITORING 1960 COLONOSCOPY - COLON CA SCREENING 1960 CT COLONOGRAPHY - COLON CA SCREENING 1960 Colorectal Cancer Screening 1960 FIT - COLON CA SCREENING 1960 FLEX SIG - COLON CA SCREENING 1960 MAMMOGRAM 1960 HIV SCREENING 1977 HEPATITIS C SCREENING 05/04/1980 DTAP/TDAP/TD VACCINES (1 - Tdap) 1981 PNEUMOCOCCAL VACCINE 50+ (1 of 2 - PCV) 1981 DIABETES-STATIN 2002 ZOSTER VACCINE (1 of 2) 2012 Respiratory Syncytial Virus (RSV) Vaccine Pt: or over 60 yrs (1 - Risk 60-74 years 1-dose series) 2022 DIABETES RETINOPATHY SCREENING 10/20/2022 DIABETES-FOOT EXAM WITH MONOFILAMENT 10/20/2022 COVID-19 VACCINE ( - season) 2024 DEPRESSION SCREENING 11/23/2024 DIABETES - URINE PROTEIN SCREENING 11/23/2024 12/04/2023, 11/19/2022 DIABETES-SERUM CREATININE 12/04/20242023, 11/19/2022, 02/20/2022, Additional history exists INFLUENZA VACCINE (Season Ended) 2025 DIABETES-HGB A1C 09/16/2025 03/17/2025, , 04/07/2024, Additional history exists HEPATITIS B VACCINE Aged Out No longe r eligible based on patient's age to complete this topic HIB VACCINE Aged Out No longer eligi ble based on patient's age to complete this topic HPV VACCINE Aged Out No longer eligi ble based on patient's age to complete this topic MENINGOCOCCAL (Group B) VACCINE SHARED DECISION-MAKING Aged Out No longer eligible based on patient's age to complete this topic MENINGOCOCCAL GROUPS A/C/Y/W VACCINE Aged Out No longer eligible based on patient's age to complete this topic Procedures Procedure Name Priority Date/Time Associated Diagnosis Comments HEMOGLOBIN A1C - POINT OF CARE (AMB) [facility] Routine 03/17/2025 10:18 AM CDT Type 2 diabetes mellitus with hyperglycemia, without long-term current use of insulin (HCC) MICROALB/CREAT RATIO URINE RANDOM PANEL 12/04/2023 8:16 AM WASTE DISPOSAL ATTENDANT COMPREHENSIVE METABOLIC PANEL 12/04/2023 8:16 AM WASTE DISPOSAL ATTENDANT from Last 3 Months or Most Recently Relevant to Health Maintenance Results * HEMOGLOBIN A1C - POINT OF CARE (AMB) [facility] (03/17/2025 10:18 AM CDT) Hemoglobin A1c POCT 5.9 % DORITA [address] BLOOD SPECIMEN / Unknown 03/17/2025 10:18 AM CDT Neema Quintero DO LAB - POINT OF CARE ORDERABLES F inal Result [facility] [address] [place] [address], [facility] [phone] * MICROALB/CREAT RATIO URINE RANDOM PANEL (12/04/2023 8:16 AM WASTE DISPOSAL ATTENDANT) Creatinine Urine 172 20 - 275 mg/dL [facility] Microalbumin Urine 2.4 mg/dL [facility] Comment: Reference Range Not established Microalbumin/Creat inine Ratio 14 <30 mcg/mg creat [facility] Comment: The ADA defines abnormalities in albumin excretion as follows: Albuminuria Category Result (mcg/mg creatinine) Normal to Mildly increased <30 Moderately increased 30-299 Severely increased > OR = 300 The ADA recommends that at least two of three specimens collected within a 3-6 month period be abnormal before considering a patient to be within a diagnostic category. REPORT COMMENT: FASTING:YES Test Performed at: [facility] [id number] [id number] RAMIREZ BRUNSON MD 12/04/2023 8:16 AM WASTE DISPOSAL ATTENDANT 12/04/2023 8:17 AM WASTE DISPOSAL ATTENDANT us Neema Quintero DO LAB - URINE CHEMISTRY ORDERABLES Final Result [facility] [address] [place] [address] * (ABNORMAL) COMPREHENSIVE METABOLIC PANEL (12/04/2023 8:16 AM WASTE DISPOSAL ATTENDANT) Glucose 136(H) 65 - 99 mg/dL [facility] Comment: Fasting reference interval For someone without known diabetes, a glucose value >125 mg/dL indicates that they may have diabetes and this should be confirmed with a follow-up test. BUN 14 7 - 25 mg/dL [facility] Creatinine 0.70 0.50 - 1.05 mg/dL [facility] eGFR by Cystatin C 98 > OR = 60 mL/min/1. 73m2 [facility] BUN/Creatinine Ratio SEE NOTE: 6 - 22 (calc) [facility] Comment: Not Reported: BUN and Creatinine are within reference range. Sodium 138 135 - 146 mmol/L [facility] Potassium 4.0 3.5 - 5.3 mmol/L [facility] Chloride 102 98 - 110 mmol/L [facility] CO2 28 20 - 32 mmol/L [facility] Calcium 9.4 8.6 - 10.4 mg/dL [facility] Protein Total 6.3 6.1 - 8.1 g/dL [facility] Albumin 4.3 3.6 - 5.1 g/dL [facility] Globulin Total 2.0 1.9 - 3.7 g/dL (calc) [facility] Albumin/Globulin Ratio 2.2 1.0 - 2.5 (calc) [facility] Bilirubin Total 0.8 0.2 - 1.2 mg/dL [facility] Alkaline Phosphatase 58 37 - 153 U/L [facility] AST 16 10 - 35 U/L [facility] ALT 17 6 - 29 U/L [facility] Comment: Test Performed at: [facility] [id number] [id number] RAMIREZ BRUNSON MD 12/04/2023 8:16 AM WASTE DISPOSAL ATTENDANT 12/04/2023 8:17 AM WASTE DISPOSAL ATTENDANT us Neemaamalia Quintero LAB - CHEMISTRY ORDERABLES Final Result [facility] [address] [place] [address] from Last 3 Months or Most Recently Relevant to Health Maintenance Insurance [employer] Care Teams Wire Steward Relationship Specialty Start Date End Date Scotty Rose PA-C [address] [place] [address] PCP - General 09/13/21
--- OUTSIDE RECORDS SUMMARY | 2025-04-28 09:57 | XMS_ITS | Data Portability ---
Author Organization Rank By Search Waizy , [facility] Address [address] [place] [address] Assessment No assessment recorded. Plan of Treatment Reminders Order Date Submit Date Provider Last Modified By Organization Details Last Modified Time Details Appointments None recorded. Lab HPV E6+E7 mRNA, qualitative PCR, cervix 2022 023 ALEXIS [facility], [address] [place], [address], 14:59:56 pap, LB 2022 023 [facility], [address] [place], [address], 12:44:04 Referral None recorded. Procedures None recorded. Surgeries None recorded. Imaging None recorded. Medication Orders None recorded. Patient TargetsNo targets recorded. Patient Instructions Encounter Date Encounter Id Patient Instructions Last Modified By Organization Details Last Modified Time 07/13/2023 [id number] Patient Health Questionnaire-9* [email or web address] Not available 07/20/2023 08:38:40 Reason for Referral None Reported. Results Created Date Observation Date Name Description Value Unit Range Abnormal Flag Note LastModifiedBy Organization Detail LastModifiedTime 07/16/2007/16/2023 THINP REP TIS PAP clinical information: normal Routi ne exam Not Available [facility] [address] [place], [address], 07/16/2023 12:44:04 07/16/20 23 07/16/2023 THINP REP TIS PAP LMP: normal NONE GIVEN Not Available [facility] [address] [place], [address], 07/16/2023 12:44:04 07/16/20 23 07/16/2023 THINP REP TIS PAP prev. Pap: normal NONE GIVEN Not Available [address] [place], [address], 07/16/2023 12:44:04 07/16/20 23 07/16/2023 THINP REP TIS PAP prev. BX: normal NONE GIVEN Not Available [address] [place], [address], 07/16/2023 12:44:04 07/16/2007/16/2023 THINP REP TIS PAP source: normal None given Not Available [address], [address], 07/16/2023 12:44:04 07/16/20 23 07/16/2023 THINP REP TIS PAP statement of adequacy: normal Satis facto ry for evalu ation . Endoc ervic al/tr ansfo rmati on zone compo nent prese nt. Not Available [address], [address], 07/16/2023 12:44:04 07/16/20 23 07/16/2023 THINP REP TIS PAP interpretati on/result: normal Cytol ogy Resul ts: Negat carlee for intra epith elial lesio n or judit maguire . Not Available [address] [place], [address], 07/16/2023 12:44:04 07/16/2007/16/2023 THINP REP TIS PAP comment: normal This Pap test has been evalu ated with compu ter [employer]en [employer] . Not Available [address] [place], [address], 07/16/2023 12:44:04 07/16/20 23 07/16/2023 THINP REP TIS PAP cytotechnolo gist: normal MMW, CT( CP) CT scree nancy locat ion: [address] [address] [place] [address] Not Available [facility] [address], [place], [address], 07/16/2023 12:44:04 07/16/20 23 07/16/2023 THINP REP TIS PAP comment EXPLA NATOR Y NOTE: The Pap is a scree nancy test for cervi mark cance r. It is not a diagn ostic test and is subje ct to false negat carlee and false posit carlee resul ts. It is most relia ble when a satis facto ry sampl e, regul keira obtai filippo, is submi tted with relev ant clini mark findi ngs and histo ry, and when the Pap resul t is evalu ated along with histo preet and curre nt clini mark infor matio n. NO COLLE CTION DATE RECEI GANESH. WE HAVE USED THE DATE THE SPECI MEN WAS RECEI GANESH BY THIS LABOR ATORY THE COLLE CTION DATE. IF THIS IS INCOR RECT, PLEAS E CONTA CT CLIEN T SERVI HIGINIO. PHONE NUMBE R: [phone] Not Available [facility] [address], [place], [address], 07/16/2023 12:44:04 07/13/2007/14/2023 HPV HIGH RISK HPV high risk Negati ve negati ve normal The HPV High Risk assay is inten ded for use as co-te sting with cytol ogy and not as a subst itute for regul ar cervi mark cytol ogy scree nancy. This assay is not inten ded for use as a scree nancy devic e for women under age 30 with samaria l cervi mark cytol ogy. Not Available [facility] [address] [place], [address], 07/14/2023 14:59:56 09/14/20 24 09/13/2024 MAMMO , scree nancy, digit al, bilat eral No observ ation record ed. [email or web address] [facility] [address] [place] [address], [place], [address], 09/18/2024 19:32:20 Result Notes None recorded. Problems Name Problem SNOMED Code Status Onset Date Resolution Date Notes Provider Name and Address Organization Details Recorded Time Morbid obesity 193122980 Active 2016 Morbid obesity; Location: None Progress: Stable Added By: Keya Souza Add to Current Problems: NO ProblemSta tus: Current Not Available [facility] 19:22:45 Atrial fibrillat ion 17733951 Active 2018 Unspecifie d atrial fibrillati on; Progress: Stable Added By: Keya Souza Add to Current Problems: YES ProblemSta tus: Current Not Available [facility] 19:22:45 Sleep apnea 71332762 Active 2016 Obstructiv e sleep apnea; Progress: Stable Added By: Keya Souza Add to Current Problems: YES ProblemSta tus: Current Not Available [facility] 19:22:45 Problem Notes None recorded. Procedures Surgical History Date Name Laterality Status Provider Name and Address Organization Details Recorded Time 023 Date of Last Pap Smear completed Keya Suoza MD [address] [place] [address], [phone], [facility] 07/18/2023 04:20:31 023 Most Recent Mammogram completed Keya Souza MD [address] [place] [address], [phone], [facility] 03/18/2023 22:55:43 021 Date of Last Colonoscopy completed Brianna Piekhushiicz [facility] 07/13/2023 14:49:54 Gall bladder completed Brianna Pietlukiewicz Rank By Search - [facility] 07/13/2023 14:42:09 D & C completed Brianna Pietlukiewicz Rank By Search - [facility] 07/13/2023 14:42:09 Sterilization completed Brianna Pietlukiewicz [facility] 07/13/2023 14:42:09 Laparoscopic Hysterectomy completed Brianna Patel [facility] [employer] [facility] 07/13/2023 14:42:10 C Section completed Briannamarquis Patel [facility] [employer] [facility] 07/13/2023 14:42:10 thyroidectomy completed Briannamarquis Patel [facility] 07/13/2023 14:51:09 Imaging Results None recorded. Procedure Notes None recorded. Medical Equipment None Reported. Allergies Allergen ID Allergen Name Allergen Category Reaction Reaction Severity Criticality Documentation Date Start Date Code Code System Note Provider Name and Address Organization Details Recorded Time 653998 latex environme nt,medica tion Not available Not available Not available 07/13/2023 91150 91 RxNorm [facility] 14:41:04 [id number] cat dander environme nt Not available Not available Not available 07/13/2023 00958 UNK Brianna kent, [facility] 14:41:04 960895 Canis lupus familiari s extract environme nt Not available Not available Not available 07/13/2023 81038 4 RxNorm Brianna kent, [place] [employer] [facility] 14:41:04 Medications Name Sig Start Date Stop Date Status Note LastModified by Organization Details LastModified Time amoxicill in 500 mg capsule TAKE ONE CAPSULE BY MOUTH THREE TIMES DAILY 07/13 completed Not Available Not Available Not Available metformin 500 mg tablet TAKE 1 TABLET BY MOUTH DAILY active Not Available Not Available No t Available diltiazem ER 180 mg capsule,2 4 hr,extend ed release TAKE 2 CAPSULES BY MOUTH EVERY DAY 07/13 completed Not Available Not Available Not Available clindamyc in HCl 300 mg capsule TAKE 1 CAPSULE BY MOUTH THREE TIMES DAILY FOR 10 DAYS 07/13 completed Not Available Not Available Not Available metoprolo l succinate ER 50 mg tablet,ex tended release 24 hr TAKE 1 TABLET BY MOUTH EVERY DAY active Not Available Not Available No t Available coal tar 08/08 completed [place] Allow Substitu tion: True Refill Denied: No Refill DateOccu rred: 07/01/20 17 Edited by: Adela Gann ) on 08/08/20 19 Stopped by: ashley( Adela Souza ) on 08/08/20 19 Not Available Not Available Not Available hydrocodo ne 5 mg-acetam inophen 325 mg tablet TAKE 1 TABLET BY MOUTH EVERY 4 TO 6 HOURS NEEDED 07/13 completed Not Available Not Available Not Available metoprolo l succinate ER 100 mg tablet,ex tended release 24 hr TAKE 1 TABLET BY MOUTH EVERY MORNING 07/13 completed Not Available Not Available Not Available triamtere ne 37.5 mg-hydroc hlorothia zide 25 mg capsule TAKE 1 CAPSULE BY MOUTH DAILY active Not Available Not Available No t Available levothyro xine 125 mcg tablet TAKE 2 TABLETS BY MOUTH DAILY BEFORE BREAKFAS T active Not Available Not Available No t Available losartan 25 mg tablet TAKE 1 TABLET BY MOUTH DAILY active Not Available Not Available No t Available digoxin 125 mcg (0.125 mg) tablet TAKE 1 TABLET BY MOUTH DAILY active Not Available Not Available No t Available methylpre dnisolone 4 mg tablets in a dose pack TAKE 1 TABLET BY MOUTH DAILY 07/13 completed Not Available Not Available Not Available diltiazem 60 mg tablet TAKE 1 TABLET BY MOUTH TWICE DAILY 07/13 completed Not Available Not Available Not Available diltiazem ER (XR/XT) 180 mg capsule,e xtended release 24 hr, controlle d TAKE 1 CAPSULE BY MOUTH EVERY MORNING active Not Available Not Available No t Available amoxicill in 875 mg-potass ium clavulana te 125 mg tablet TAKE 1 TABLET BY MOUTH EVERY 12 HOURS 07/13 completed Not Available Not Available Not Available Dyazide 2016 active Dyazide RxNorm: 07430 Allow Substitu tion: True Refill Denied: No Refill DateOccu rred: 07/01/20 17 Edited by: Adela Gann ) on 08/08/20 19 Stopped by: Adela Gann ) on Not Available Not Available Not Available Xarelto 07/13 completed Xarelto RxNorm: 0395873 Refill Denied: No Refill DateOccu rred: 08/08/20 19 Edited by: Adela Gann ) on 08/08/20 Stopped by: Adela Gann ) on Not Available Not Available Not Available Xarelto 20 mg tablet TAKE 1 TABLET BY MOUTH DAILY active Not Available Not Available No t Available Ozempic 0.25 mg or 0.5 mg (2 mg/1.5 mL) subcutane ous pen injector INJECT 0.5 MG SUBCUTAN EOUS EVERY 7 DAYS 07/13 completed Not Available Not Available Not Available Ozempic 1 mg/dose (4 mg/3 mL) subcutane ous pen injector INJECT 1 MG UNDER THE SKIN EVERY 7 DAYS active Not Available Not Available No t Available Ozempic 2 mg/dose (8 mg/3 mL) subcutane ous pen injector INJECT 2 MG UNDER THE SKIN EVERY 7 DAYS 07/13 completed Not Available Not Available Not Available Vitals Date Recorded Body weight Body mass index (BMI) Body height Systolic blood pressure Diastolic blood pressure Provider Name and Address Organization Details Last Updated DateTime 07/13/2023 852847. 43 g 59.1 kg/m2 172.72 cm 134 mm[Hg] 86 mm[Hg] Brianna Patel [facility] 14:54:22 Social History Question Answer Notes LastModified by Haul Zing. Details LastModified Time Tobacco Smoking Status Never Smoker Brianna kent, [facility] 07/13/2023 14:41:43 Are You Blind Or Do You Have Difficulty Seeing? No Information not available 07/13/2023 Are You Deaf Or Do You Have Serious Difficulty Hearing? No Information not available 07/13/2023 What Type Of Diet Are You Following? REGULAR Information not available 07/13/2023 What Is Your Relationship Status? Information not available 07/13/2023 Are You Sexually Active? No Information not available 07/13/2023 Sex: Unknown Functional Status Question Answer Note LastModified by Haul Zing. Details LastModified Time Do you use any illicit or recreational drugs? No Information not available 07/13/2023 What is your level of alcohol consumption? None Information not available 07/13/2023 Do you or have you ever used e-cigarettes or vape? Never used electronic cigarettes Information not available 07/13/2023 What is your exercise level? Occasional Information not available 07/13/2023 Mental Status None recorded. Family History Relationship Description Onset Age of this Age Resolved Age Notes LastModified by Organization Details LastModified Time Mother Hypertensive disorder apietiukiewic z Not available 07/13/2023 14:40:37 Brother Hypertensive disorder apietiukiewic z Not available 07/13/2023 14:40:37 Sister Hypertensive disorder apietiukiewic z Not available 07/13/2023 14:40:37 Father Malignant tumor of colon apietiukiewic z Not available 07/13/2023 14:40:37 Father Hypertensive disorder apietiukiewic z Not available 07/13/2023 14:40:37 Father Diabetes mellitus apietiukiewic z Not available 07/13/2023 14:40:37 Medical History Condition Response Other Cancer Y Gallbladder disease Y Diabetes Mellitus (non-insulin dependent ) Y High Blood Pressure Y Chicken Pox Y Seasonal allergies Y Gynecological History Statement/Question Response Date of Last Colonoscopy 06/23/2021 Date of last HPV 07/13/2023 Date of LMP 05/08/2009 Date of Last Pap Smear 07/13/2023 Most Recent Mammogram 03/17/2023 Current Control Method Hysterectom y Age at Menarche 14 Obstetrics History GPAL:G 0 P 0 0 0 0 Past Encounters Encounter ID Performer Location Encounter Start Date Encounter Closed Date Diagnosis/Indication Diagnosis SNOMED-CT Code Diagnosis ICD10 Code Diagnosis Note [id number] Keya Souza MD [facility] [address] [place] [address] 07/13/2023 14:38:32 07/14/2023 14:59:17 Gynecologic examination 08756195 Z01.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 Discussed pap testing done today. Discussed general health concerns and following with primary health provider Depression screening 171 696065 Z13.31 Severe obesity 446824955 1 9104 E66.01 advise weight loss, pt is on GLP 1 agonist. ozempic. discussed lifestyle, pt lives alone as from . works long hours, limited time for meal prep and exercise Health Concerns Section Related Observation LastModified by Organization Detai ls LastModified Time None Recorded Concern Status LastModified by Organization Details LastModified Time None Recorded Advance Directives Directive None Recorded Payers Insurance Date Sequence Insurance Name Policy Number Policy Calvo Covered Member ID Calvo Member ID Guarantor Name 07/13/2023 1 [place] [id number] Allyn Ramirez [id number] Allyn Ramirez Notes Date Note Type Note Provider Name and Address Organization Details Recorded Time 07/13/2023 text/html Patient is here today for annual exam. Her last pap smear was 10/12/20 which was normal and neg HPV. She had a mammogram at [facility] 03/17/23 which was also normal. She has no concerns today./as above, Allyn is a 63 yr old who had a laparoscopic supracervical hysterectomy due to adenomyosis yrs ago. Therefore, she continues to get pap smearsMedical history is significant for atrial fibrillation (on xarelto), type 2 diabetes, sleep apnea, history of thyroid cancer, and obesity. 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
--- OUTSIDE RECORDS SUMMARY | 2025-04-28 09:57 | XMS_ITS | Encounter Summary ---
Author Organization [facility] Address [address] [facility] [place] [address] Care Team Providers Care Edging Machine Feeder Name Role Phone Scotty Rose PA-C Primary Care Provide r Reason for Visit * Reason Onset Date Comments MEDICATION REFILL 04/07/2024 Encounter Details Date Type Department Care Team (Late Contact Info) Description 04/07/2024 Refill [facility] - Endocrinology [address] [place] [address] Neema Quintero DO [address] [facility] [address] [place] [address] MEDICATION REFILL Social History Tobacco Use Types Packs/Day Years Used Date Smoking Tobacco: Never Smokeless Tobacco: Never Alcohol Use Standard Drinks/Week Comments Never 0 (1 standard drink = 0.6 oz pur e alcohol) Comments Unknown Sex and Gender Information Value Date Recorded Sex Assigned at Not on file Legal Sex Female 12:14 PM CDT Gender Identity Not on file Sexual Orientation Not on file documented as of this encounter Plan of Treatment Upcoming Encounters Date Type Department Care Team (Late Contact Info) Description 06/01/2025 10:00 AM CDT Office Visit [facility] - Endocrinology [address] [facility] [place] [address] Scotty Holman MD [address] [place] [address] 08/04/2025 10:00 AM CDT Office Visit [facility] - Endocrinology [address] [place] [address] Neema Quintero DO [address] [place] [address] documented as of this encounter Visit Diagnoses Not on filedocumented in this encounter Care Teams Edging Machine Feeder Relationship Specialty Start Date End Date Scotty Rose PA-C [address] [place] [address] PCP - General 09/13/21 documented as of this encounter
--- NOTE | 2025-04-28 10:04 | ECHO_ITS ---
Patient Info Name: Allyn Ramirez Age: 64 years : 1960 Gender: Female Ht: 68 in Wt: 360 lbs BSA: 2.90 m2 HR: 80 bpm BP: 136 / 85 mmHg Heart Rhythm: Atrial Fibrillation Technical Quality: Good Exam Date: 04/28/2025 10:10 AM Patient Status: O Admit Date: 04/28/2025 Exam Type: CA echo doppler color flow Complete two-dimensional, color flow and Doppler transthoracic echocardiogram is performed. Refrigeration Brazer/Solderer: Suly Roberson Attending Provider: Serge Ho DO Summary 1. Complete two-dimensional, color flow and Doppler transthoracic echocardiogram is performed. 2. Left ventricular chamber dimension is normal. 3. Left ventricular systolic function is normal, estimated at 50-55. 4. The left ventricular diastolic function is abnormal. 5. E/e' 12 is mildly elevated. 6. Atrial fibrillation. 7. Left atrial chamber dimension is moderately enlarged. 8. Right atrial chamber dimension is severely enlarged. 9. There is mild aortic valve sclerosis. 10. The mitral valve has a mildly calcified annulus. 11. There is mild mitral valve regurgitation. 12. There is moderate to severe tricuspid valve regurgitation. 13. Mild pulmonary hypertension, estimated pulmonary arterial systolic pressure is 48 mmHg. 14. Dilated inferior vena cava with >50% collapse upon inspiration consistent with elevated right atrial pressure, 10 mmHg. Left Ventricle E/e' 12 is mildly elevated. Left ventricular chamber dimension is normal. Left ventricular systolic function is normal, estimated at 50-55. The left ventricular diastolic function is abnormal. Atrial fibrillation. Right Ventricle Right ventricular chamber dimension is normal. Right ventricular systolic function is normal and with normal TAPSE 2.5 cm. Left Atria Left atrial chamber dimension is moderately enlarged. Right Atria Right atrial chamber dimension is severely enlarged. Aortic Valve The aortic valve is trileaflet. There is mild aortic valve sclerosis. There is no aortic valve stenosis. There is no aortic valve regurgitation. Pulmonic Valve There is no pulmonic regurgitation. Mitral Valve The mitral valve has a mildly calcified annulus. There is no mitral valve stenosis. There is mild mitral valve regurgitation. Tricuspid Valve There is moderate to severe tricuspid valve regurgitation. Mild pulmonary hypertension, estimated pulmonary arterial systolic pressure is 48 mmHg. Pericardium/Pleural There is no pericardial effusion. Inferior Vena Cava Dilated inferior vena cava with >50% collapse upon inspiration consistent with elevated right atrial pressure, 10 mmHg. Aorta The aortic root size at the sinus of Valsalva is normal. Left Ventricular Outflow Tract Name Value Normal LVOT 2D LVOT Diameter 1.9 cm LVOT Doppler LVOT Peak Velocity 125 cm/s LVOT Peak Gradient 6 mmHg LVOT Mean Gradient 4 mmHg LVOT VTI 28 cm LVOT VTI/AV VTI Ratio 0.7 LVOT Stroke Volume 75 ml LVOT CO 5.2 l/min LVOT CI 1.8 l/min/m2 Pulmonic Valve Name Value Normal RVOT Doppler RVOT Peak Velocity 63 cm/s RVOT Peak Gradient 2 mmHg PV Doppler PV Peak Velocity 147 cm/s PV Peak Gradient 9 mmHg Mitral Valve Name Value Normal MV Diastolic Function MV E Peak Velocity 118 cm/s MV A Peak Velocity 2 cm/s MV E/A 73.1 MV Decel Time (PW) 180 ms Tricuspid Valve Name Value Normal TV Regurgitation Doppler TR Peak Velocity 307 cm/s TR Peak Gradient 36 mmHg Estimated PAP/RSVP RA Pressure 10 mmHg <=5 PA Systolic Pressure 48 mmHg <36 RV Systolic Pressure 48 mmHg <36 TV Annular TDI TV Lateral Keyanna s' Velocity 11.7 cm/s >=9.5 Aorta Name Value Normal Ascending Aorta Ao Root Diameter (MM) 3.2 cm Ao Root Diam Index (MM) 1.1 cm/m2 Aortic Valve Name Value Normal AV Doppler AV Peak Velocity 177 cm/s AV Peak Gradient 8 mmHg AV Mean Gradient 6 mmHg AV VTI 39 cm AV Area (Cont Eq VTI) 1.9 cm2 >=3.0 AV Area (Cont Eq Mario) 1.9 cm2 AV DI (Mario) 0.71 AV Regurgitation 2D LVOT Area 2.7 cm2 Ventricles Name Value Normal LV Dimensions 2D/MM IVS Diastolic Thickness (2D) 0.9 cm 0.6-1.0 LVID Diastole (2D) 5.2 cm 3.8-5.2 LVIW Diastolic Thickness (2D) 1.1 cm 0.6-0.9 LVID Systole (2D) 4.0 cm 2.2-3.5 LVOT Diameter 1.9 cm LV Mass (2D Cubed) 189.44 g 67.00-162.00 LV Mass Index (2D Cubed) 65 g/m2 43-95 Relative Wall Thickness (2D) 0.41 <=0.42 LV Fractional Shortening/Ejection Fraction 2D/MM LV Fractional Shortening (2D) 24 % 27-45 LV EF (2D Teichvietz) 47 % LV Diastolic Volume (4C MOD) 122 ml LV EF (4C MOD) 47 % LV Diastolic Volume (2C MOD) 145 ml LV EF (2C MOD) 61 % LV Diastolic Volume (BP MOD) 133 ml 46-106 LV Diastolic Volume Index (BP MOD) 46 ml/m2 29-61 LV Systolic Volume (BP MOD) 61 ml 14-42 LV Systolic Volume Index (BP MOD) 21 ml/m2 8-24 LV EF (BP MOD) 54 % 54-74 LV Diastolic Length (4C) 8.6 cm LV Systolic Length (4C) 7.7 cm LV Stroke Volume (4C MOD) 57 ml Atria Name Value Normal LA Dimensions LA Dimension (MM) 4.8 cm 2.7-3.8 LA Volume (4C A-L) 98 ml LA Volume (BP A-L) 119 ml RA Dimensions RA Systolic Major [place] Length (4C) 6.7 cm 2.2-2.8 RA Area (4C) 32.5 cm2 <=18.0 Report Signatures
== END 2025-04-28 09:52 | disposition home or self-care (01) ==
PROVIDERS: Visit Provider Internal Medicine Cardiovascular Disease
DX: I48.91 Unspecified atrial fibrillation (principal); I35.8 Other nonrheumatic aortic valve disorders; I08.1 Rheumatic disorders of both mitral and tricuspid valves; I27.20 Pulmonary hypertension, unspecified
CPT/HCPCS: 93306